=== PATIENT | male | born 1960 | race Caucasian/White ===

== ENCOUNTER 2017-01-07 03:52 | Inpatient (IN) | payer OTHER ==
[2017-01-07] VITALS (20 sets, daily range): BP systolic 157–187; BP diastolic 59–102; PULSE 48–138; TEMP 36.5–36.8; O2SAT 95–99; Ht 182.9 cm; Wt 89.1 kg
[~2017-01-07] VITALS: Ht 182.9 cm; Wt 89.1 kg
[2017-01-07] MEDS ORDERED: ACETAMINOPHEN 325 MG TAB PO PRN (04:15)
[2017-01-07] MEDS ORDERED: CITA20TA4 PO (04:24)
[2017-01-07] MEDS ORDERED: CARV25TA2 PO (04:24)
[2017-01-07] MEDS ORDERED: PRLSR20 PO (04:24)
[2017-01-07] MEDS ORDERED: ATOR-54 PO (04:24)
[2017-01-07] MEDS ORDERED: ASPCH81X PO (04:27)
[2017-01-07] MEDS ORDERED: FRRS300 PO (04:27)
[2017-01-07] MEDS ORDERED: TERA5CAP PO (04:27)
[2017-01-07] MEDS ORDERED: HYT/2 PO (04:27)
[2017-01-07] MEDS ORDERED: FEBU40TA PO (04:27)
[2017-01-07] MEDS ORDERED: AMLO-114 PO (04:27)
[2017-01-07] MEDS ORDERED: SODIUM CHLORIDE 0.9% IV SCH (04:45)
[2017-01-07] MEDS ORDERED: CALCIUM GLUCONATE IV SCH (04:45)
[2017-01-07 04:52] LABS: BASO % 1.1 %; BASO ABS # 0.05 K/uL (0-0.2); COMPLETE YES; EOS % 3.8 %; HEMATOCRIT 29.1 % (42-52); IG% 0.2 %; LYMPH % 33.2 %; MEAN CELL VOLUME 88.7 fL (80-100); MEAN CORPUSCULAR HEMOGLOBIN 29.6 pg (25-34); MEAN CORPUSCULAR HGB CONC 33.3 g/dl (32-36); MEAN PLATELET VOLUME 9.6 fL (7.4-10.4); MONO % 6.6 %; NEUT % 55.1 %; PLATELET COUNT 114 K/uL (130-400); RED BLOOD COUNT 3.28 M/uL (4.7-6.1); WHITE BLOOD COUNT 4.52 K/uL (4.8-10.8)
--- NOTE | 2017-01-07 05:11 | History and Physical ---
History & Physical Date & Time of Service: Jan 07, 2017 at 04:54 Chief Complaint: Abnormal Labs Primary Care Physician: Zak Tijerina M.D. History of Present Illness Source: patient, clinic records 56 year old male with history of CKD 4, Atrial Fibrillation on Aspirin, CVA, Hypertension, HLD, presenting with low calcium level. Patient follows with Dr. Tijerina for PCP and Dr. Haskins for CKD. History obtained from patient and from Dr. Dalila Brown who signed out the patient to nd. Patient has CKD 4 and underwent AV fistula placement around 6 months ago. For the past few months, patient has been managed by Dr. Haskins for hypocalcemia, attributed to his CKD. He had multiple ER visits to the [facility] ER recently for this. The last visit was on 01/04/17 wherein patient was apparently given IV Ca and discharged home. Today, outpatient lab work showed that the patient's potassium was 5.6, hence was directed to the ER. Patient went to [place] ER, and after discussion with Dr. Brown, he was advised to be transferred to [facility] for further management including possible initiation of hemodialysis. On exam, patient was seen resting in bed, comfortable, pleasant. Denies paresthesias, weakness, tremors. Also denies any headache, chest pain, dyspnea, abdominal pain ,nausea, changes with BM/Urination. No other symptoms. Family History DM - aunt Social History Smoking Status: Former Smoker Smokeless Tobacco Use: No Alcohol Use: none Drug Use: none Marital Status: single Housing status: lives alone Allergies Coded Allergies: No Known Allergies (Unverified , 01/07/17) Home Medications Scheduled Amlodipine (Norvasc), 10 MG PO DAILY Aspirin (Aspirin Chewable), 81 MG PO DAILY Atorvastatin (Lipitor), 20 MG PO DAILY Carvedilol (Coreg), 25 MG PO BID Citalopram Hydrobromide (Citalopram Hydrobromide), 20 MG PO DAILY Febuxostat (Uloric), 40 MG PO DAILY Ferrous Sulfate (Ferrous Sulfate), 325 MG PO DAILY Omeprazole (Prilosec), 20 MG PO DAILY Terazosin (Hytrin), 5 MG PO BID Terazosin Hcl (Hytrin), 2 MG PO BID Review of Systems Constitutional- no fever; no weight loss Eyes- no acute visual changes ENT- no sinus drainage; no pharyngitis Pulmonary- no cough, no wheezing, no shortness of breath Cardiac- no chest pain, no palpitations, no orthopnea, no dependent edema GI- no nausea, no vomiting, no diarrhea, no melena, no hematochezia - no dysuria, no hematuria Musculoskeletal- no arthralgias, no myalgias Derm- no rashes, no new skin lesions, no changing skin lesions Hematologic- no unusual bruising, no unusual bleeding Lymphatics- no adenopathy Endocrine- no polyuria or polydipsia; no heat or cold intolerance Neuro- no headaches, no focal neurologic symptoms Psych- no anxiety, no depression Physical Exam Vital Signs Date Time Temp Pulse Resp B/P (MAP) Pulse Ox O2 Delivery O2 Flow Rate FiO2 01/07/17 04:06 58 01/07/17 04:00 36.7 56 18 175/87 99 Room Air General Appearance: WD/WN, no apparent distress Head: normocephalic, atraumatic Eyes: normal inspection, EOMI, sclerae normal ENT: normal ENT inspection, hearing grossly normal, pharynx normal Neck: supple, no adenopathy, thyroid normal, no JVD, trachea midline Respiratory/Chest: chest non-tender, lungs clear, normal breath sounds, no respiratory distress, no accessory muscle use Cardiovascular: regular rate, rhythm, no edema, no JVD, no murmur Abdomen/GI: normal bowel sounds, non tender, soft, no organomegaly Back: normal inspection, no CVA tenderness Extremities/Musculoskelatal: normal inspection, no calf tenderness, normal capillary refill, no pedal edema, normal range of motion, + pertinent finding (( +) AV fistula on left arm with good thrill) 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 as tested, no motor/sensory deficits, alert, normal mood/affect, oriented x 3 Skin: normal color, warm/dry, no rash Lymphatic: no adenopathy Diagnostics Laboratory Results Results Past 24 Hours Test 01/07/17 04:38 Range/Units White Blood Count 4.52 4.8-10.8 K/uL Red Blood Count 3.28 4.7-6.1 M/uL Hemoglobin 9.7 14.0-18.0 g/dL Hematocrit 29.1 42-52 % Mean Corpuscular Volume 88.7 80-100 fL Mean Corpuscular Hemoglobin 29.6 25-34 pg Mean Corpuscular Hemoglobin Concent 33.3 32-36 g/dl Platelet Count 114 130-400 K/uL Mean Platelet Volume 9.6 7.4-10.4 fL Neutrophils (%) (Auto) 55.1 % Lymphocytes (%) (Auto) 33.2 % Monocytes (%) (Auto) 6.6 % Eosinophils (%) (Auto) 3.8 % Basophils (%) (Auto) 1.1 % Neutrophils # (Auto) 2.49 1.4-6.5 K/uL Lymphocytes # (Auto) 1.50 1.2-3.4 K/uL Monocytes # (Auto) 0.30 0.11-0.59 K/uL Eosinophils # (Auto) 0.17 0-0.5 K/uL Basophils # (Auto) 0.05 0-0.2 K/uL RDW Standard Deviation 49.5 36.4-46.3 fL RDW Coefficient of Variation 15.2 11.5-14.5 % Immature Granulocyte % (Auto) 0.2 % Immature Granulocyte # (Auto) 0.01 0.00-0.02 K/uL EKG HR 50, sinus rhythm, no signs of acute ischemia/infarct Impression Assessment and Plan 56 year old male with history of CKD 4, Atrial Fibrillation on Aspirin, CVA, Hypertension, HLD, presenting with low calcium level. HYPOCALCEMIA, LIKELY FROM CKD 4 - denies paresthesias, weakness QTc 464 - PTH elevated at 393 as of November 2016 - discussed case with Dr. Brown - 2g Ca gluconate then repeat ionized Ca level - Vit D ordered - may need to initiate hemodialysis during this admission SINUS BRADYCARDIA - HR 50s - asymptomatic BP actually elevated - hold Coreg 25mg po BID HISTORY OF A FIB - EKG showing sinus bradycardia - hold Co reg continue Aspirin HISTORY OF CVA - continue Aspirin and Atorvastatin HYPERTENSION - hold Coreg for bradycardia - continue Amlodipine DVT PROPHYLAXIS SCDs FULL CODE PER PATIENT DISPOSITION anticipate d/c home when medically stable VTE Prophylaxis VTE Risk Assessment Done? Y/N: Yes Risk Level: Moderate Given or contraindicated: SCD's
[2017-01-07] MEDS ORDERED: CALCIUM GLUCONATE 10% 2,000 MG in SODIUM CHLORIDE 0.9% 50ML 50 ML IV STA ×4 (05:12→22:42)
[2017-01-07 05:24] LABS: BUN/CREATININE RATIO 12.2 (10-20); CALCIUM 5.8 mg/dl (8.5-10.1); CREATININE 4.6 mg/dl (0.60-1.40); MAGNESIUM 1.5 mg/dl (1.8-2.4); PHOSPHORUS 5.6 mg/dl (2.5-4.9); POTASSIUM 3.4 mmol/L (3.5-5.1)
[2017-01-07] MEDS: AMLODIPINE BESYLATE 5 MG TAB PO SCH (06:11)
[2017-01-07] MEDS: FERROUS SULFATE 325 MG TAB PO SCH (07:32)
[2017-01-07] MEDS: PANTOprazole SOD 40 MG TAB PO SCH (07:32)
[2017-01-07] MEDS: ASPIRIN 81 MG CHEW PO SCH (07:32)
[2017-01-07] MEDS: CITALOPRAM 20 MG TAB PO SCH (07:32)
[2017-01-07] MEDS: FEBUXOSTAT 40 MG TAB PO SCH (07:33)
[2017-01-07] MEDS ORDERED: HEPARIN SOD (PORCINE) 1000 UNIT/ML 10 ML VIAL IV SCH ×2 (08:00→12:00)
[2017-01-07] MEDS ORDERED: ATORVASTATIN 20 MG TAB PO SCH (09:00)
[2017-01-07] MEDS ORDERED: CALCIUM GLUCONATE 10% 1,000 MG in SODIUM CHLORIDE 0.9% 50ML 50 ML IV STA (09:47)
[2017-01-07] MEDS ORDERED: PARICALCITOL 5 MCG/ML VIAL (ZEMPLAR) IV. ONE (10:00)
[2017-01-07] MEDS: MAGNESIUM OXIDE 400 MG TAB PO SCH ×2 (10:11→20:27)
--- NOTE | 2017-01-07 10:22 | Nephrology Consultation ---
Nephrology Consultation Date of Consultation: Jan 07, 2017. Attending Physician: Dr Soliman Requesting Physician: Dr Jimenez Reason for Consultation: critical hypocalcemia History of Present Illness 56 year old male who follows w/ my partner Dr. Haskins in CKD clinic has been having progressively lower calcium on outpt labs over the past 2 mos. 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 DM and PEPPER were cured after 150 lb wt loss w/ gastric bypass. He denies any muscle weakness, tentany, fasciculations, perioral numbness. He has per outpt charts at times had trouble accessing medications >> for example, states PCP only this past week resumed his vitamin D which had otherwise been held earlier this summer (notes on my quick review don't support this however); also had been rx'd calcitriol this summer but could not afford pill and so did not take. Denies dyspnea, metallic taste to foods, edema, N/V, or other uremic sx. he was sent to [place] [facility] over the weekend for IV calcium and also in November for same. Despite IV calcium in [place] ER on 01/04 and despite taking massive amounts of oral calcium (1500 mg ca carbonate between each meal and before bed, so qid), his ionized calcium yesterday as outpt was 0.9 w/ uncorrected Ca 5.6, both trending downward. Past Medical/Surgical History see HPI Family History no FH of CKD/ESRD Social History Smoking Status: Former Smoker Alcohol Use: none Drug Use: none Marital Status: single Housing Status: lives with significant other Occupation Status: disabled Allergies Coded Allergies: No Known Allergies (Unverified , 01/07/17) Medications Current Inpatient Medications Medications (Trade) Dose Ordered Sig/Graciela Route Start Time Stop Time Status Last Admin Dose Admin Acetaminophen (Tylenol Tab) 650 mg Q4H PRN PO 01/07/17 04:15 02/06/17 04:14 Amlodipine Besylate (Norvasc Tab) 10 mg DAILY PO 01/07/17 09:00 02/06/17 08:59 01/07/17 06:11 10 MG Aspirin (Aspirin Chew) 81 mg DAILY PO 01/07/17 09:00 02/06/17 08:59 01/07/17 07:32 81 MG Atorvastatin Calcium (Lipitor Tab) 20 mg DAILY PO 01/07/17 09:00 02/06/17 08:59 01/07/17 07:32 20 MG Citalopram Hydrobromide (celeXA TAB) 20 mg DAILY PO 01/07/17 09:00 02/06/17 08:59 01/07/17 07:32 20 MG Ferrous Sulfate (Feosol Tab) 325 mg DAILY PO 01/07/17 09:00 02/06/17 08:59 01/07/17 07:32 325 MG Terazosin HCl (Hytrin Cap) 5 mg BID PO 01/07/17 09:00 02/06/17 08:59 01/07/17 07:32 5 MG Terazosin HCl (Hytrin Cap) 2 mg BID PO 01/07/17 09:00 02/06/17 08:59 01/07/17 07:32 2 MG Febuxostat (Uloric) 40 mg DAILY PO 01/07/17 09:00 02/06/17 08:59 01/07/17 07:33 40 MG Pantoprazole Sodium (Protonix Tab) 40 mg QAM PO 01/07/17 09:00 02/06/17 08:59 01/07/17 07:32 40 MG Magnesium Oxide (Mag-Ox Tab) 400 mg BID PO 01/07/17 09:00 02/06/17 08:59 Home Meds and Scripts Medications Dose Route/Sig Max Daily Dose Days Date Category Ferrous Sulfate 325 Mg Tab 325 Mg PO DAILY 01/07/17 Reported Uloric (Febuxostat) 40 Mg Tab 40 Mg PO DAILY 01/07/17 Reported Aspirin Chewable (Aspirin) 81 Mg Chew 81 Mg PO DAILY 01/07/17 Reported Norvasc (Amlodipine Besylate) 10 Mg Tab 10 Mg PO DAILY 01/07/17 Reported Hytrin (Terazosin HCl) 2 Mg Cap 2 Mg PO BID 01/07/17 Reported Hytrin (Terazosin HCl) 5 Mg Cap 5 Mg PO BID 01/07/17 Reported Prilosec (Omeprazole) 20 Mg Capcr 20 Mg PO DAILY 01/07/17 Reported Coreg (Carvedilol) 25 Mg Tab 25 Mg PO BID 01/07/17 Reported Citalopram Hydrobromide 20 Mg Tab 20 Mg PO DAILY 01/07/17 Reported Lipitor (Atorvastatin) 20 Mg Tab 20 Mg PO DAILY 01/07/17 Reported Review of Systems Constitutional: No fever, No weakness, No fatigue Eyes: No worsening of vision ENT: No hearing loss Respiratory: No cough, No shortness of breath Cardiac: No chest pain, No edema, No palpitations Abdomen: No pain, No nausea, No vomiting, No diarrhea, No constipation Musculoskeletal: No joint pain, No muscle pain Male : + problem reported (denies change in urinary habits), No dysuria, No urinary frequency Neuro: No memory loss, No weakness, No numbness/tingling Psych: No depression symptoms, No anxiety Heme: No abnormal bleeding/bruising Skin: No rash, No new/changing skin lesions Physical Exam Date Time Temp Pulse Resp B/P (MAP) Pulse Ox O2 Delivery O2 Flow Rate FiO2 01/07/17 07:48 36.7 57 17 162/76 (104) 96 Room Air 01/07/17 05:49 36.6 52 16 184/75 95 Room Air 01/07/17 04:52 54 17 97 01/07/17 04:37 51 18 96 01/07/17 04:31 160/72 01/07/17 04:22 56 15 98 01/07/17 04:17 170/75 01/07/17 04:07 58 97 Room Air 01/07/17 04:06 58 01/07/17 04:00 36.7 56 18 175/87 99 Room Air 01/07/17 03:58 175/87 General Appearance: WD/WN, no apparent distress, + pertinent finding (on ra, maneuvers w/ ease for exam) Eyes: EOMI ENT: hearing grossly normal Neck: supple Respiratory/Chest: lungs clear, no respiratory distress, + decreased breath sounds Cardiovascular: no edema, + bradycardia (regularly spaced beats in 50s w/ pacs) Abdomen: normal bowel sounds, non tender, soft, + pertinent finding (no sanchez) Extremities: no pedal edema, + pertinent finding (L AVF + t/b) Neurologic/Psych: alert, normal mood/affect, oriented x 3, + pertinent finding (some dysarthria and R sided weakness, ?reliability as historian at times) Skin: no jaundice, warm/dry, no rash Diagnostics Last 24 Hours Test 01/07/17 04:38 01/07/17 06:55 01/07/17 07:45 01/07/17 07:46 White Blood Count 4.52 K/uL Red Blood Count 3.28 M/uL Hemoglobin 9.7 g/dL Hematocrit 29.1 % Mean Corpuscular Volume 88.7 fL Mean Corpuscular Hemoglobin 29.6 pg Mean Corpuscular Hemoglobin Concent 33.3 g/dl Platelet Count 114 K/uL Mean Platelet Volume 9.6 fL Neutrophils (%) (Auto) 55.1 % Lymphocytes (%) (Auto) 33.2 % Monocytes (%) (Auto) 6.6 % Eosinophils (%) (Auto) 3.8 % Basophils (%) (Auto) 1.1 % Neutrophils # (Auto) 2.49 K/uL Lymphocytes # (Auto) 1.50 K/uL Monocytes # (Auto) 0.30 K/uL Eosinophils # (Auto) 0.17 K/uL Basophils # (Auto) 0.05 K/uL RDW Standard Deviation 49.5 fL RDW Coefficient of Variation 15.2 % Immature Granulocyte % (Auto) 0.2 % Immature Granulocyte # (Auto) 0.01 K/uL Sodium Level 145 mmol/L Potassium Level 3.4 mmol/L Chloride Level 117 mmol/L Carbon Dioxide Level 19 mmol/L Anion Gap 9.0 mmol/L Blood Urea Nitrogen 56 mg/dl Creatinine 4.60 mg/dl Est Creatinine Clear Calc Drug Dose 22.1 ml/min Estimated GFR () 15.6 Estimated GFR (Non- 13.4 BUN/Creatinine Ratio 12.2 Random Glucose 81 mg/dl Calcium Level 5.8 mg/dl 6.5 mg/dl Ionized Calcium 0.79 mmol/l 0.86 mmol/l Phosphorus Level 5.6 mg/dl Magnesium Level 1.5 mg/dl 25-Hydroxy Vitamin D Total 20.8 ng/ml EKG: ecg > sinus roger Assessment & Plan 56 y/o M w/ hx of stroke, 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 Outpt calcium levels have consistently trended downward despite ER visits for repletion. 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 until iCa consistently > 1.0 -giving paricalcitol w/ HD 4 mcg IV today -orders in to dialyze today on monitor on high Ca bath (3Ca) -pls check ionized Ca q 6h urgent, check mag AM and PM w/ these labs -replete mag po for now > pls start slow mag 64 mg bid -give calcium gluconate 2 gm IV now and repeat for every iCa between 0.8- 1.0 give 2 gm calcium gluconate IV, and if iCa > 1.0 and up to 1.12, give 1 gm IV calcium gluconate, if >1.12 hold ca gluconate; if less than 0.8 give 2 gm calcium gluconate IV and call nephro << I discussed this order w/ pharmacy and they are putting in -pls start D2 61157 units po q48 hrs for now (high dose) -pls give calcium carbonate po 1250 mg tid <<>> pls d/w pharmacy timing of this for maximal absorption -pls start phosLo 667 mg ac po -pls check tsh w/ next labs hypomagnesemia -check as above -replete po where possible ESRD not on dialysis -will do dialysis today to help w/ Ca levels; plan tx likely tomorrow as well -unclear at this time if he will leave hospital on dialysis or not > depends on clinical course -has mature avf HTN -may improve slightly w/ HD; cont amlodipine; avoid BB d/t bradycardia -pls check later in day > if still elevated, start ACEI (ok to use in house w/ his ckd/esrd) -consider baseline CXR, evelia if any hypoxia Anemia of ESRD and mild thrombocytopenia -pls check transferrin sat and ferritin w/ labs in am -will give epo 10K units w/ HD today -thrombocytopenia is new and will need to be monitored; may reflect uremia Appreciate c/s; will follow with you. Care coordinated w/ Dr Soliman
[2017-01-07] MEDS ORDERED: HEPARIN SOD (PORCINE) 1000 UNIT/ML 10 ML VIAL IV ONE (10:30)
[2017-01-07] MEDS ORDERED: EPOETIN ALFA 10,000 UNITS/ML VIAL IV. ONE (10:30)
[2017-01-07 11:39] LABS: HEPATITIS B AB NEG
[2017-01-07] MEDS: CALCIUM CARBONATE 1250MG TAB PO SCH ×2 (14:23→20:27)
[2017-01-07] MEDS: ERGOCALCIFEROL 50,000 INTER.UNIT CAP PO SCH (14:23)
[2017-01-07] MEDS: MAGNESIUM SULFATE 1GM / D5W 1 GM in PREMIXED IN D5W 100 ML IV SCH ×2 (14:24→15:38)
[2017-01-07] MEDS ORDERED: ATOR-26 PO (15:35)
[2017-01-07] MEDS ORDERED: ERGO1CAP41 PO (15:36)
[2017-01-07] MEDS ORDERED: CALC500C3 PO (15:36)
[2017-01-07] MEDS ORDERED: RXC5 PO (15:49)
--- NOTE | 2017-01-07 16:01 | Progress Note ---
Medicine Progress Note Date & Time of Visit: Jan 07, 2017 at 15:22. Subjective 56 yo M with h/o CKD Stage 4 presents with severe asymptomatic hypocalcemia. tolerating PO Asking for food-hungry otherwise denies perioral numbness, muscle spasms or any other symptoms at this time has some chronic lower back pain and consistently takes oxycodone as outpatient 5mg [id number] this now. BP elevated but Coreg, Oxycodone held on admission Increased Lipitor 20 back to home dose of 80mg First HD session went well today Trending calcium q6h-IV calcium as needed Objective Last 8 Hrs Date Time Temp Pulse Resp B/P (MAP) Pulse Ox O2 Delivery O2 Flow Rate FiO2 01/07/17 14:00 36.5 83 178/88 (118) 01/07/17 13:28 138 185/102 01/07/17 13:15 52 173/78 01/07/17 13:00 50 182/83 01/07/17 12:46 48 157/76 01/07/17 12:30 50 187/72 01/07/17 12:19 96 Room Air 01/07/17 12:15 51 170/82 01/07/17 12:14 36.8 53 22 162/93 (116) 98 Room Air 01/07/17 12:00 50 166/79 01/07/17 11:45 54 169/76 01/07/17 11:30 53 162/93 01/07/17 11:24 56 170/84 01/07/17 08:01 96 Room Air 01/07/17 07:48 36.7 57 17 162/76 (104) 96 Room Air Physical Exam: GEN: WNWD, in no acute distress, alert and appropriate, some speech difficulties but is lucid HEENT: NC/AT, MMM CARDIO: reg rate, S1/2 heard without m/g/r LUNGS: CTA bilaterally, no crackles, rales or wheezes, good diaphragmatic excursion ABD: soft, non-tender, non-distended, no rebound or guarding, +BS EXTREMITY: RP and DP palpable 2+ bilat, no LE swelling or edema, extremities are warm and well-perfused. birthmark on R forearm. NEURO: CN 2-12 grossly intact MUSC: 5/5 strength throughout, no gross focal deficits, ambulatory without issues. SKIN: warm and dry Laboratory Results: 01/07/17 04:38 Red Blood Count 3.28, Mean Corpuscular Volume 88.7, Mean Corpuscular Hemoglobin 29.6, Mean Corpuscular Hemoglobin Concent 33.3, Mean Platelet Volume 9.6, Neutrophils (%) (Auto) 55.1, Lymphocytes (%) (Auto) 33.2, Monocytes (%) (Auto) 6.6, Eosinophils (%) (Auto) 3.8, Basophils (%) (Auto) 1.1, Neutrophils # (Auto) 2.49, Lymphocytes # (Auto) 1.50, Monocytes # (Auto) 0.30, Eosinophils # (Auto) 0.17, Basophils # (Auto) 0.05 01/07/17 04:38 Test 01/07/17 04:38 01/07/17 06:55 01/07/17 08:34 01/07/17 10:27 White Blood Count 4.52 K/uL (4.8-10.8) Red Blood Count 3.28 M/uL (4.7-6.1) Hemoglobin 9.7 g/dL (14.0-18.0) Hematocrit 29.1 % (42-52) Mean Corpuscular Volume 88.7 fL (80-100) Mean Corpuscular Hemoglobin 29.6 pg (25-34) Mean Corpuscular Hemoglobin Concent 33.3 g/dl (32-36) Platelet Count 114 K/uL (130-400) Mean Platelet Volume 9.6 fL (7.4-10.4) Neutrophils (%) (Auto) 55.1 % Lymphocytes (%) (Auto) 33.2 % Monocytes (%) (Auto) 6.6 % Eosinophils (%) (Auto) 3.8 % Basophils (%) (Auto) 1.1 % Neutrophils # (Auto) 2.49 K/uL (1.4-6.5) Lymphocytes # (Auto) 1.50 K/uL (1.2-3.4) Monocytes # (Auto) 0.30 K/uL (0.11-0.59) Eosinophils # (Auto) 0.17 K/uL (0-0.5) Basophils # (Auto) 0.05 K/uL (0-0.2) RDW Standard Deviation 49.5 fL (36.4-46.3) RDW Coefficient of Variation 15.2 % (11.5-14.5) Immature Granulocyte % (Auto) 0.2 % Immature Granulocyte # (Auto) 0.01 K/uL (0.00-0.02) Anion Gap 9.0 mmol/L (3-11) Est Creatinine Clear Calc Drug Dose 22.1 ml/min Estimated GFR () 15.6 Estimated GFR (Non- 13.4 BUN/Creatinine Ratio 12.2 (10-20) Phosphorus Level 5.6 mg/dl (2.5-4.9) Magnesium Level 1.5 mg/dl (1.8-2.4) 25-Hydroxy Vitamin D Total 20.8 ng/ml (30-100) Calcium Level 6.5 mg/dl (8.5-10.1) Parathyroid Hormone (Intact) 492.1 pg/mL (11.1-79.5) Ionized Calcium 0.84 mmol/l (1.12-1.32) Test 01/07/17 10:50 01/07/17 13:38 Hepatitis B Surface Antigen NEG (NEG) Hepatitis B Surface Antibody NEG Last 24 Hours Test 01/07/17 04:38 01/07/17 06:55 01/07/17 07:46 01/07/17 08:34 White Blood Count 4.52 K/uL Red Blood Count 3.28 M/uL Hemoglobin 9.7 g/dL Hematocrit 29.1 % Mean Corpuscular Volume 88.7 fL Mean Corpuscular Hemoglobin 29.6 pg Mean Corpuscular Hemoglobin Concent 33.3 g/dl Platelet Count 114 K/uL Mean Platelet Volume 9.6 fL Neutrophils (%) (Auto) 55.1 % Lymphocytes (%) (Auto) 33.2 % Monocytes (%) (Auto) 6.6 % Eosinophils (%) (Auto) 3.8 % Basophils (%) (Auto) 1.1 % Neutrophils # (Auto) 2.49 K/uL Lymphocytes # (Auto) 1.50 K/uL Monocytes # (Auto) 0.30 K/uL Eosinophils # (Auto) 0.17 K/uL Basophils # (Auto) 0.05 K/uL RDW Standard Deviation 49.5 fL RDW Coefficient of Variation 15.2 % Immature Granulocyte % (Auto) 0.2 % Immature Granulocyte # (Auto) 0.01 K/uL Sodium Level 145 mmol/L Potassium Level 3.4 mmol/L Chloride Level 117 mmol/L Carbon Dioxide Level 19 mmol/L Anion Gap 9.0 mmol/L Blood Urea Nitrogen 56 mg/dl Creatinine 4.60 mg/dl Est Creatinine Clear Calc Drug Dose 22.1 ml/min Estimated GFR () 15.6 Estimated GFR (Non- 13.4 BUN/Creatinine Ratio 12.2 Random Glucose 81 mg/dl Calcium Level 5.8 mg/dl 6.5 mg/dl Ionized Calcium 0.79 mmol/l 0.86 mmol/l Phosphorus Level 5.6 mg/dl Magnesium Level 1.5 mg/dl 25-Hydroxy Vitamin D Total 20.8 ng/ml Parathyroid Hormone (Intact) 492.1 pg/mL Test 01/07/17 10:27 01/07/17 10:50 01/07/17 13:38 Ionized Calcium 0.84 mmol/l Hepatitis B Surface Antigen NEG Hepatitis B Surface Antibody NEG Assessment & Plan 56 yo M with h/o CKD Stage 4 presents with severe asymptomatic hypocalcemia. 1. Hypocalcemia-likely multifactorial in setting of ESRD, hypomagnesemia, and low vitamin D. Pt remains asymptomatic. First treatment of HD started today. Serial ionized calcium ordered with replacement per Nephro protocol as spelled out in progress note. Cont per Nephro recs. PO calcium restarted. 2. Hypomagnesemia-replace IV and add PO replacement. 3. CKD IV-starting initial HD treatment today. Cont per Nephro 4. Atrial fibrillation-was initially sinus roger, but went into atrial fibrillation while on first HD treatment today and remains there with rate < 100. Cont to monitor and control rate PRN. Anticoagulation contraindicated in the setting of GI bleed in the past. 5. h/o CVA in 2001 embolic stroke as a complication of carotid surgery- residual speech issues. Cont ASA 81 and Lipitor 80mg dose (this is home dose, not 20mg. Per records and confirmed with the patient) 6. HTN-uncontrolled. On Norvasc 10mg, Coreg 25 BID and Hytrin 7mg PO BID, confirmed with patient. Coreg was held initially because of the bradycardia. Will add back at half dose with HR in the 60s. Will give some hydralazine PRN for now until he becomes more stable with new HD treatments and various lyte shifts with fluids given. Also, pain is uncontrolled as he is on oxycodone 5mg IR q8hrs and this was not continued on admission. Will restart this now and monitor. 7. Chronic back pain. On oxycodone q8hrs. Restarted now, likely contributing to higher blood pressures. 8. Vitamin D def-replacing 50K q2d per Nephro recs. Was on 50K qweek. 9. Anemia of CKD-no indication for blood transfusion. Cont to monitor 10. Thrombocytopenia DVT prophy: Heparin, SCDs FULL CODE DISPOSITION: anticipate d/c home when medically stable DO [facility] Hospital[facility] Consultants: Nephro. Current Inpatient Medications: Current Inpatient Medications Medications (Trade) Dose Ordered Sig/Graciela Route Start Time Stop Time Status Last Admin Dose Admin Acetaminophen (Tylenol Tab) 650 mg Q4H PRN PO 01/07/17 04:15 02/06/17 04:14 Amlodipine Besylate (Norvasc Tab) 10 mg DAILY PO 01/07/17 09:00 02/06/17 08:59 01/07/17 06:11 10 MG Aspirin (Aspirin Chew) 81 mg DAILY PO 01/07/17 09:00 02/06/17 08:59 01/07/17 07:32 81 MG Atorvastatin Calcium (Lipitor Tab) 20 mg DAILY PO 01/07/17 09:00 02/06/17 08:59 01/07/17 07:32 20 MG Citalopram Hydrobromide (celeXA TAB) 20 mg DAILY PO 01/07/17 09:00 02/06/17 08:59 01/07/17 07:32 20 MG Ferrous Sulfate (Feosol Tab) 325 mg DAILY PO 01/07/17 09:00 02/06/17 08:59 01/07/17 07:32 325 MG Terazosin HCl (Hytrin Cap) 5 mg BID PO 01/07/17 09:00 02/06/17 08:59 01/07/17 07:32 5 MG Terazosin HCl (Hytrin Cap) 2 mg BID PO 01/07/17 09:00 02/06/17 08:59 01/07/17 07:32 2 MG Febuxostat (Uloric) 40 mg DAILY PO 01/07/17 09:00 02/06/17 08:59 01/07/17 07:33 40 MG Pantoprazole Sodium (Protonix Tab) 40 mg QAM PO 01/07/17 09:00 02/06/17 08:59 01/07/17 07:32 40 MG Magnesium Oxide (Mag-Ox Tab) 400 mg BID PO 01/07/17 09:00 02/06/17 08:59 01/07/17 10:11 400 MG Miscellaneous Information (Pending Order) 1 ea Q6H N/A 01/07/17 14:00 02/06/17 13:59 Magnesium Sulfate 1 gm/Prmx 100 ml @ 100 mls/hr Q1H IV 01/07/17 14:00 01/07/17 15:59 01/07/17 14:24 100 MLS/HR Ergocalciferol (Vitamin D Cap) 50,000 interunit Q2D@0900 PO 01/07/17 14:00 01/25/17 12:00 01/07/17 14:23 50,000 INTERUNIT Calcium Carbonate (oS-Yahir 500 TAB) 1,250 mg TID PO 01/07/17 14:00 02/06/17 13:59 01/07/17 14:23 1,250 MG Calcium Acetate (Phoslo Cap) 667 mg TIDM PO 01/07/17 16:45 02/06/17 16:44
[2017-01-07 16:50] LABS: INR 1.1 (0.9-1.1); PROTHROMBIN TIME (PATIENT) 11.3 SECONDS (9.0-12.0)
[2017-01-07] MEDS: CALCIUM ACETATE 667MG GELCAP PO SCH (17:06)
[2017-01-07] MEDS: OXYCODONE HCL IR 5 MG TAB (IMMEDIATE RELEASE) PO SCH ×2 (17:14→23:00)
[2017-01-07] MEDS: CARVEDILOL 12.5 MG TAB PO SCH (20:25)
[2017-01-07] MEDS: HEPARIN SOD 5000 UNIT/0.5 ML CARP SQ SCH (20:30)
[2017-01-07] MEDS ORDERED: OXYCODONE HCL IR 5 MG TAB (IMMEDIATE RELEASE) PO SCH (22:00)
[2017-01-07] MEDS ORDERED: NURSING VERBAL MED ORDER ONE ×2 (22:45)
[2017-01-08] VITALS (16 sets, daily range): BP systolic 125–214; BP diastolic 64–104; PULSE 52–81; TEMP 36.5–37; O2SAT 94–98
[2017-01-08 05:01] LABS: BASO % 0.9 %; BASO ABS # 0.03 K/uL (0-0.2); COMPLETE YES; EOS % 4.5 %; HEMATOCRIT 31.6 % (42-52); IG% 0.3 %; LYMPH ABS # 0.89 K/uL (1.2-3.4); MEAN CELL VOLUME 87.3 fL (80-100); MEAN CORPUSCULAR HGB CONC 33.2 g/dl (32-36); MEAN PLATELET VOLUME 9.9 fL (7.4-10.4); NEUT % 60.3 %; PLATELET COUNT 118 K/uL (130-400); RED BLOOD COUNT 3.62 M/uL (4.7-6.1)
[2017-01-08] MEDS ORDERED: CALCIUM GLUCONATE 10% 1,000 MG in SODIUM CHLORIDE 0.9% 50ML 50 ML IV STA ×2 (05:25→23:05)
[2017-01-08 05:28] LABS: CALCIUM 7.7 mg/dl (8.5-10.1); CREATININE 3.5 mg/dl (0.60-1.40); MAGNESIUM 2.1 mg/dl (1.8-2.4); PHOSPHORUS 4.7 mg/dl (2.5-4.9); POTASSIUM 3.3 mmol/L (3.5-5.1)
[2017-01-08] MEDS ORDERED: NURSING VERBAL MED ORDER ONE ×3 (05:30→23:15)
[2017-01-08] MEDS: HEPARIN SOD 5000 UNIT/0.5 ML CARP SQ SCH ×3 (05:51→20:20)
[2017-01-08] MEDS: OXYCODONE HCL IR 5 MG TAB (IMMEDIATE RELEASE) PO SCH ×4 (05:53→22:11)
--- NOTE | 2017-01-08 07:55 | Clinical Documentation Query ---
NII Potter : CLINICAL DOCUMENTATION QUERY Patient is a 56 year old male admitted for evaluation and treatment of critical hypocalcemia. Documentation by admitting, nephrology, and attending includes: CKD 4 CKD 4-starting initial HD treatment today CKD 4/5 ESRD 5 not on dialysis Now recieving dialysis. Unclear if will require HD at time of discharge. Please clarify as clinically appropriate as these diagnoses are not similar in terms of severity of illness, risk of mortality, and effect on DRG assignment. Thank you. In your clinical opinion is this patient being managed for: ( x ) End stage renal disease requiring dialysis ( ) ANN on CKD 4 requiring hemodialysis ( ) NAN on CKD stage 4-5 requiring hemodialysis ( ) Not Agree ( ) Other explanation of clinical findings (Please Explain) ( ) Unable to determine (Please Define) ( ) Need to Discuss The medical record reflects the following clinical findings, treatment, and risk factors. Clinical Indicators: As above Treatment: Hemodialysis, nephrology consultation, telemetry Risk Factors: Congenitally absent left kidney, hypertension, atrial fibrillation Please clarify and document your clinical opinion in the progress notes and discharge summary. Terms such as "probable", "suspected", "likely", "questionable", "possible", or "still to be ruled out" are acceptable. IF IN AGREEMENT, YOU MUST DOCUMENT ABOVE DIAGNOSTIC STATEMENT IN DAILY PROGRESS NOTES AND DISCHARGE SUMMARY. This document is not part of the patient's record. Thank You, Freddy Gamez, MARISELA [phone]
--- NOTE | 2017-01-08 07:56 | Clinical Documentation Query ---
Dr. BEAULIEU [facility] : CLINICAL DOCUMENTATION QUERY Patient is a 56 year old male admitted for evaluation and treatment of critical hypocalcemia. Documentation by admitting, nephrology, and attending includes: CKD 4 CKD 4-starting initial HD treatment today CKD 4/5 ESRD 5 not on dialysis( now receiving dialysis) Now recieving dialysis. Unclear if will require HD at time of discharge. Please clarify as clinically appropriate as these diagnoses are not similar in terms of severity of illness, risk of mortality, and effect on DRG assignment. Thank you. In your clinical opinion is this patient being managed for: ( x ) End stage renal disease ( ) ANN on CKD 4 requiring hemodialysis ( ) ANN on CKD stage 4-5 requiring hemodialysis ( ) Not Agree ( ) Other explanation of clinical findings (Please Explain) ( ) Unable to determine (Please Define) ( ) Need to Discuss He has ckd stage 5 with hypocalcemia and initiated dialysis secondary to ESRD and hypocalcemia from ESRD. The medical record reflects the following clinical findings, treatment, and risk factors. Clinical Indicators: As above Treatment: Hemodialysis, nephrology consultation, telemetry Risk Factors: Congenitally absent left kidney, hypertension, atrial fibrillation Please clarify and document your clinical opinion in the progress notes and discharge summary. Terms such as "probable", "suspected", "likely", "questionable", "possible", or "still to be ruled out" are acceptable. IF IN AGREEMENT, YOU MUST DOCUMENT ABOVE DIAGNOSTIC STATEMENT IN DAILY PROGRESS NOTES AND DISCHARGE SUMMARY. This document is not part of the patient's record. Thank You, Freddy Gamez, RN [phone]
[2017-01-08] MEDS ORDERED: PARICALCITOL 5 MCG/ML VIAL (ZEMPLAR) IV. SCH (08:00)
[2017-01-08] MEDS ORDERED: EPOETIN ALFA 10,000 UNITS/ML VIAL IV. SCH (08:00)
[2017-01-08] MEDS: CALCIUM ACETATE 667MG GELCAP PO SCH ×3 (08:27→17:36)
[2017-01-08] MEDS: FEBUXOSTAT 40 MG TAB PO SCH (08:30)
[2017-01-08] MEDS: CARVEDILOL 12.5 MG TAB PO SCH ×2 (09:00→20:16)
[2017-01-08] MEDS: HEPARIN SOD (PORCINE) 1000 UNIT/ML 10 ML VIAL IV SCH ×3 (09:00→13:54)
[2017-01-08] MEDS: ASPIRIN 81 MG CHEW PO SCH (09:20)
[2017-01-08] MEDS: CITALOPRAM 20 MG TAB PO SCH (09:20)
[2017-01-08] MEDS: PANTOprazole SOD 40 MG TAB PO SCH (09:21)
[2017-01-08] MEDS: FERROUS SULFATE 325 MG TAB PO SCH (09:21)
[2017-01-08] MEDS: CALCIUM CARBONATE 1250MG TAB PO SCH ×3 (09:22→20:16)
[2017-01-08] MEDS: MAGNESIUM OXIDE 400 MG TAB PO SCH ×2 (09:22→20:16)
[2017-01-08] MEDS ORDERED: POTASSIUM CHLORIDE 20 MEQ TABCR PO ONE (11:00)
[2017-01-08] MEDS: HydrALAZINE HCL 20 MG/ML VIAL IV. PRN (11:36)
[2017-01-08] MEDS ORDERED: CALCIUM GLUCONATE 10% 1,000 MG in SODIUM CHLORIDE 0.9% 50ML 50 ML IV SCH (13:00)
[2017-01-08 13:07] LABS: HEP C SIGNAL TO CUTOFF RATIO 0.01 (LESS THAN 1.0)
[2017-01-08] MEDS: AMLODIPINE BESYLATE 5 MG TAB PO SCH (13:57)
[2017-01-08] MEDS: ATORVASTATIN 40 MG TAB PO SCH (13:58)
--- NOTE | 2017-01-08 15:28 | Nephrology Progress Note ---
Nephrology Progress Note Date of Service: Jan 08, 2017. Subjective 56 yo male with ckd stage 5 with significant hypocalcemia with a mature fistula. had dialysis yesterday and today. pt feels good. did have episode of palpitations on dialysis yesterday. today, it went well. Objective Date Time Temp Pulse Resp B/P (MAP) Pulse Ox O2 Delivery O2 Flow Rate FiO2 01/08/17 14:06 36.5 81 191/68 (109) 01/08/17 13:00 67 205/98 01/08/17 12:32 36.5 53 20 166/76 (106) 98 Room Air 01/08/17 12:30 66 214/104 01/08/17 12:00 61 187/65 01/08/17 12:00 Room Air 01/08/17 11:30 58 166/76 01/08/17 11:10 53 185/82 01/08/17 10:50 63 178/74 01/08/17 10:30 36.7 61 156/82 (106) 01/08/17 08:18 36.7 57 20 188/77 (114) 95 Room Air 01/08/17 08:00 Room Air 01/08/17 04:00 Room Air 01/08/17 03:15 37.0 62 18 125/77 (93) 96 Room Air 01/07/17 23:59 Room Air 01/07/17 23:18 36.7 62 18 172/77 (108) 96 Room Air 01/07/17 20:06 36.7 49 16 158/59 (92) 97 Room Air 01/07/17 20:00 Room Air 01/07/17 16:00 Room Air 01/07/17 15:33 36.6 79 20 174/75 (108) 99 Room Air Physical Exam: General-aaox3 Eyes-no scleral icterus ENT-mmm Neck-supple Lungs-cta Heart-rrr Abdomen-bs+ s/nt/nd Extremities-no c/c/e Neuro-nonfocal Current Inpatient Medications Medications (Trade) Dose Ordered Sig/Graciela Route Start Time Stop Time Status Last Admin Dose Admin Acetaminophen (Tylenol Tab) 650 mg Q4H PRN PO 01/07/17 04:15 02/06/17 04:14 Amlodipine Besylate (Norvasc Tab) 10 mg DAILY PO 01/07/17 09:00 02/06/17 08:59 01/08/17 13:57 10 MG Aspirin (Aspirin Chew) 81 mg DAILY PO 01/07/17 09:00 02/06/17 08:59 01/08/17 09:20 81 MG Citalopram Hydrobromide (celeXA TAB) 20 mg DAILY PO 01/07/17 09:00 02/06/17 08:59 01/08/17 09:20 20 MG Ferrous Sulfate (Feosol Tab) 325 mg DAILY PO 01/07/17 09:00 02/06/17 08:59 01/08/17 09:21 325 MG Terazosin HCl (Hytrin Cap) 5 mg BID PO 01/07/17 09:00 02/06/17 08:59 01/08/17 14:00 5 MG Terazosin HCl (Hytrin Cap) 2 mg BID PO 01/07/17 09:00 02/06/17 08:59 01/08/17 14:00 2 MG Febuxostat (Uloric) 40 mg DAILY PO 01/07/17 09:00 02/06/17 08:59 01/08/17 08:30 40 MG Pantoprazole Sodium (Protonix Tab) 40 mg QAM PO 01/07/17 09:00 02/06/17 08:59 01/08/17 09:21 40 MG Magnesium Oxide (Mag-Ox Tab) 400 mg BID PO 01/07/17 09:00 02/06/17 08:59 01/08/17 09:22 400 MG Miscellaneous Information (Pending Order) 1 ea Q6H N/A 01/07/17 14:00 02/06/17 13:59 01/08/17 13:54 1 EA Ergocalciferol (Vitamin D Cap) 50,000 interunit Q2D@0900 PO 01/07/17 14:00 01/25/17 12:00 01/07/17 14:23 50,000 INTERUNIT Calcium Carbonate (oS-Yahir 500 TAB) 1,250 mg TID PO 01/07/17 14:00 02/06/17 13:59 01/08/17 13:59 1,250 MG Calcium Acetate (Phoslo Cap) 667 mg TIDM PO 01/07/17 16:45 02/06/17 16:44 01/08/17 13:57 667 MG Hydralazine HCl (HydrALAZINE INJ) 10 mg Q6H PRN IV. 01/07/17 16:00 02/06/17 15:59 01/08/17 11:36 10 MG Carvedilol (Coreg Tab) 12.5 mg BID PO 01/07/17 21:00 02/06/17 20:59 Atorvastatin Calcium (Lipitor Tab) 80 mg QAM PO 01/08/17 09:00 02/07/17 08:59 01/08/17 13:58 80 MG Heparin Sodium (Porcine) (Heparin Sq 5000 Unit/0.5ml) 5,000 unit Q8 SQ 01/07/17 22:00 02/06/17 21:59 01/08/17 14:07 5,000 UNIT Oxycodone HCl (Roxicodone Immediate Rel Tab) 5 mg Q8 PO 01/07/17 17:00 01/21/17 16:59 01/08/17 14:03 5 MG Calcium Gluconate 1000 mg/Sodium Chloride 60 ml @ 240 mls/hr TODAY@1300 IV 01/08/17 13:00 01/08/17 18:00 01/08/17 13:59 240 MLS/HR Last 24 Hours Test 01/07/17 16:25 01/07/17 22:16 01/08/17 04:42 01/08/17 09:38 Prothrombin Time 11.3 SECONDS Prothromb Time International Ratio 1.1 Ionized Calcium 0.96 mmol/l 1.00 mmol/l 1.03 mmol/l 1.02 mmol/l Thyroid Stimulating Hormone (TSH) 2.250 uIu/ml Magnesium Level 2.1 mg/dl 2.1 mg/dl White Blood Count 3.30 K/uL Red Blood Count 3.62 M/uL Hemoglobin 10.5 g/dL Hematocrit 31.6 % Mean Corpuscular Volume 87.3 fL Mean Corpuscular Hemoglobin 29.0 pg Mean Corpuscular Hemoglobin Concent 33.2 g/dl Platelet Count 118 K/uL Mean Platelet Volume 9.9 fL Neutrophils (%) (Auto) 60.3 % Lymphocytes (%) (Auto) 27.0 % Monocytes (%) (Auto) 7.0 % Eosinophils (%) (Auto) 4.5 % Basophils (%) (Auto) 0.9 % Neutrophils # (Auto) 1.99 K/uL Lymphocytes # (Auto) 0.89 K/uL Monocytes # (Auto) 0.23 K/uL Eosinophils # (Auto) 0.15 K/uL Basophils # (Auto) 0.03 K/uL RDW Standard Deviation 47.6 fL RDW Coefficient of Variation 14.8 % Immature Granulocyte % (Auto) 0.3 % Immature Granulocyte # (Auto) 0.01 K/uL Sodium Level 145 mmol/L Potassium Level 3.3 mmol/L Chloride Level 114 mmol/L Carbon Dioxide Level 23 mmol/L Anion Gap 8.0 mmol/L Blood Urea Nitrogen 38 mg/dl Creatinine 3.50 mg/dl Est Creatinine Clear Calc Drug Dose 29.1 ml/min Estimated GFR () 21.7 Estimated GFR (Non- 18.7 BUN/Creatinine Ratio 11.0 Random Glucose 96 mg/dl Calcium Level 7.7 mg/dl Phosphorus Level 4.7 mg/dl Assessment & Plan ESRD-pt ckd stage 5-secondary to significant electrolyte abnormalities recommend he start chronic dialysis. pt is now ESRD-dialysis dependent. dialyzing on a 3k/3calcium bath, trying to raise calcium levels. getting iv calcium gluconate as well as oral calcium gluconate. to give oral calcitriol 1mg a day as well with elevated pth levels in setting of normal phos and low calcium.
[2017-01-08] MEDS: CALCITRIOL 0.25 MCG CAP PO SCH (17:36)
[2017-01-09] VITALS (21 sets, daily range): BP systolic 130–185; BP diastolic 53–96; PULSE 45–66; TEMP 36.6–37.1; O2SAT 94–97
--- NOTE | 2017-01-09 00:15 | Progress Note ---
Medicine Progress Note Date & Time of Visit: Jan 08, 2017 at 13:21. Subjective tolerating PO asymptomatic afebrile second HD treatment today. Ca replacement given overnight Objective Last 8 Hrs Date Time Temp Pulse Resp B/P (MAP) Pulse Ox O2 Delivery O2 Flow Rate FiO2 01/08/17 12:32 36.5 53 20 166/76 (106) 98 Room Air 01/08/17 12:00 Room Air 01/08/17 11:10 53 185/82 01/08/17 10:50 63 178/74 01/08/17 10:30 36.7 61 156/82 (106) 01/08/17 08:18 36.7 57 20 188/77 (114) 95 Room Air 01/08/17 08:00 Room Air Physical Exam: GEN: WNWD, in no acute distress, alert and appropriate, some speech difficulties but is lucid HEENT: NC/AT, MMM CARDIO: reg rate, S1/2 heard without m/g/r LUNGS: CTA bilaterally, no crackles, rales or wheezes, good diaphragmatic excursion ABD: soft, non-tender, non-distended, no rebound or guarding, +BS EXTREMITY: RP and DP palpable 2+ bilat, no LE swelling or edema, extremities are warm and well-perfused. birthmark on R forearm. NEURO: CN 2-12 grossly intact MUSC: 5/5 strength throughout, no gross focal deficits, ambulatory without issues. SKIN: warm and dry Laboratory Results: 01/08/17 04:42 Red Blood Count 3.62, Mean Corpuscular Volume 87.3, Mean Corpuscular Hemoglobin 29.0, Mean Corpuscular Hemoglobin Concent 33.2, Mean Platelet Volume 9.9, Neutrophils (%) (Auto) 60.3, Lymphocytes (%) (Auto) 27.0, Monocytes (%) (Auto) 7.0, Eosinophils (%) (Auto) 4.5, Basophils (%) (Auto) 0.9, Neutrophils # (Auto) 1.99, Lymphocytes # (Auto) 0.89, Monocytes # (Auto) 0.23, Eosinophils # (Auto) 0.15, Basophils # (Auto) 0.03 01/08/17 04:42 Test 01/07/17 04:38 01/07/17 08:34 01/07/17 10:50 01/07/17 16:25 25-Hydroxy Vitamin D Total 20.8 ng/ml (30-100) Parathyroid Hormone (Intact) 492.1 pg/mL (11.1-79.5) Hepatitis A IgM Antibody NON-REACTIVE (NON-REACTIVE) Hepatitis B Surface Antigen NEG (NEG) Hepatitis B Surface Antibody NEG Hepatitis B Core IgM Antibody NON-REACTIVE (NON-REACTIVE) Hepatitis C Antibody NON-REACTIVE (NON-REACTIVE) Hepatitis C Ab Signal/Cutoff Ratio 0.01 (LESS THAN 1.0) Prothrombin Time 11.3 SECONDS (9.0-12.0) Prothromb Time International Ratio 1.1 (0.9-1.1) Thyroid Stimulating Hormone (TSH) 2.250 uIu/ml (0.300-4.500) Test 01/08/17 04:42 01/08/17 22:33 White Blood Count 3.30 K/uL (4.8-10.8) Red Blood Count 3.62 M/uL (4.7-6.1) Hemoglobin 10.5 g/dL (14.0-18.0) Hematocrit 31.6 % (42-52) Mean Corpuscular Volume 87.3 fL (80-100) Mean Corpuscular Hemoglobin 29.0 pg (25-34) Mean Corpuscular Hemoglobin Concent 33.2 g/dl (32-36) Platelet Count 118 K/uL (130-400) Mean Platelet Volume 9.9 fL (7.4-10.4) Neutrophils (%) (Auto) 60.3 % Lymphocytes (%) (Auto) 27.0 % Monocytes (%) (Auto) 7.0 % Eosinophils (%) (Auto) 4.5 % Basophils (%) (Auto) 0.9 % Neutrophils # (Auto) 1.99 K/uL (1.4-6.5) Lymphocytes # (Auto) 0.89 K/uL (1.2-3.4) Monocytes # (Auto) 0.23 K/uL (0.11-0.59) Eosinophils # (Auto) 0.15 K/uL (0-0.5) Basophils # (Auto) 0.03 K/uL (0-0.2) RDW Standard Deviation 47.6 fL (36.4-46.3) RDW Coefficient of Variation 14.8 % (11.5-14.5) Immature Granulocyte % (Auto) 0.3 % Immature Granulocyte # (Auto) 0.01 K/uL (0.00-0.02) Anion Gap 8.0 mmol/L (3-11) Est Creatinine Clear Calc Drug Dose 29.1 ml/min Estimated GFR () 21.7 Estimated GFR (Non- 18.7 BUN/Creatinine Ratio 11.0 (10-20) Calcium Level 7.7 mg/dl (8.5-10.1) Phosphorus Level 4.7 mg/dl (2.5-4.9) Magnesium Level 2.1 mg/dl (1.8-2.4) Ionized Calcium 1.11 mmol/l (1.12-1.32) Last 24 Hours Test 01/07/17 16:25 01/07/17 22:16 01/08/17 04:42 01/08/17 09:38 Prothrombin Time 11.3 SECONDS Prothromb Time International Ratio 1.1 Ionized Calcium 0.96 mmol/l 1.00 mmol/l 1.03 mmol/l 1.02 mmol/l Thyroid Stimulating Hormone (TSH) 2.250 uIu/ml Magnesium Level 2.1 mg/dl 2.1 mg/dl White Blood Count 3.30 K/uL Red Blood Count 3.62 M/uL Hemoglobin 10.5 g/dL Hematocrit 31.6 % Mean Corpuscular Volume 87.3 fL Mean Corpuscular Hemoglobin 29.0 pg Mean Corpuscular Hemoglobin Concent 33.2 g/dl Platelet Count 118 K/uL Mean Platelet Volume 9.9 fL Neutrophils (%) (Auto) 60.3 % Lymphocytes (%) (Auto) 27.0 % Monocytes (%) (Auto) 7.0 % Eosinophils (%) (Auto) 4.5 % Basophils (%) (Auto) 0.9 % Neutrophils # (Auto) 1.99 K/uL Lymphocytes # (Auto) 0.89 K/uL Monocytes # (Auto) 0.23 K/uL Eosinophils # (Auto) 0.15 K/uL Basophils # (Auto) 0.03 K/uL RDW Standard Deviation 47.6 fL RDW Coefficient of Variation 14.8 % Immature Granulocyte % (Auto) 0.3 % Immature Granulocyte # (Auto) 0.01 K/uL Sodium Level 145 mmol/L Potassium Level 3.3 mmol/L Chloride Level 114 mmol/L Carbon Dioxide Level 23 mmol/L Anion Gap 8.0 mmol/L Blood Urea Nitrogen 38 mg/dl Creatinine 3.50 mg/dl Est Creatinine Clear Calc Drug Dose 29.1 ml/min Estimated GFR () 21.7 Estimated GFR (Non- 18.7 BUN/Creatinine Ratio 11.0 Random Glucose 96 mg/dl Calcium Level 7.7 mg/dl Phosphorus Level 4.7 mg/dl Assessment & Plan 56 yo M with h/o CKD Stage 4 presents with severe asymptomatic hypocalcemia. 1. Hypocalcemia-likely multifactorial in setting of ESRD, hypomagnesemia, and low vitamin D. Pt remains asymptomatic. Continues on HD today. Serial ionized calcium ordered with replacement per Nephro protocol as spelled out in progress note and ionized Ca is consistently>1 Cont per Nephro recs. PO calcium restarted. 2. Hypomagnesemia-replace IV and add PO replacement. 3. ESRD-HD initiated 01/08 Cont per Nephro 4. Atrial fibrillation-was initially sinus roger, but went into atrial fibrillation while on first HD treatment and spontaneously converted back to sinus roger. Cont to monitor and control rate PRN. Anticoagulation contraindicated in the setting of GI bleed in the past. 5. h/o CVA in 2001 embolic stroke as a complication of carotid surgery- residual speech issues. Cont ASA 81 and Lipitor 80mg dose. 6. HTN-uncontrolled. On Norvasc 10mg, Coreg 25 BID and Hytrin 7mg PO BID, confirmed with patient. Coreg held because of the bradycardia. Hydralazine given PRN today during HD, however, BP looks better since we added back his oxycodone. 7. Chronic back pain. On oxycodone q8hrs. Restarted now, likely contributing to higher blood pressures. 8. Vitamin D def-replacing 50K q2d per Nephro recs. Was on 50K qweek. 9. Anemia of CKD-no indication for blood transfusion. Cont to monitor 10. Thrombocytopenia 11. Hypokalemia-replaced PO DVT prophy: Heparin, SCDs FULL CODE DISPOSITION: anticipate d/c home when medically stable DO Aamir Higgins Hospitalist Consultants: Nephro. Current Inpatient Medications: Current Inpatient Medications Medications (Trade) Dose Ordered Sig/Graciela Route Start Time Stop Time Status Last Admin Dose Admin Acetaminophen (Tylenol Tab) 650 mg Q4H PRN PO 01/07/17 04:15 02/06/17 04:14 Amlodipine Besylate (Norvasc Tab) 10 mg DAILY PO 01/07/17 09:00 02/06/17 08:59 01/07/17 06:11 10 MG Aspirin (Aspirin Chew) 81 mg DAILY PO 01/07/17 09:00 02/06/17 08:59 01/08/17 09:20 81 MG Citalopram Hydrobromide (celeXA TAB) 20 mg DAILY PO 01/07/17 09:00 02/06/17 08:59 01/08/17 09:20 20 MG Ferrous Sulfate (Feosol Tab) 325 mg DAILY PO 01/07/17 09:00 02/06/17 08:59 01/08/17 09:21 325 MG Terazosin HCl (Hytrin Cap) 5 mg BID PO 01/07/17 09:00 02/06/17 08:59 01/07/17 20:27 5 MG Terazosin HCl (Hytrin Cap) 2 mg BID PO 01/07/17 09:00 02/06/17 08:59 01/07/17 20:27 2 MG Febuxostat (Uloric) 40 mg DAILY PO 01/07/17 09:00 02/06/17 08:59 01/08/17 08:30 40 MG Pantoprazole Sodium (Protonix Tab) 40 mg QAM PO 01/07/17 09:00 02/06/17 08:59 01/08/17 09:21 40 MG Magnesium Oxide (Mag-Ox Tab) 400 mg BID PO 01/07/17 09:00 02/06/17 08:59 01/08/17 09:22 400 MG Miscellaneous Information (Pending Order) 1 ea Q6H N/A 01/07/17 14:00 02/06/17 13:59 Ergocalciferol (Vitamin D Cap) 50,000 interunit Q2D@0900 PO 01/07/17 14:00 01/25/17 12:00 01/07/17 14:23 50,000 INTERUNIT Calcium Carbonate (oS-Yahir 500 TAB) 1,250 mg TID PO 01/07/17 14:00 02/06/17 13:59 01/08/17 09:22 1,250 MG Calcium Acetate (Phoslo Cap) 667 mg TIDM PO 01/07/17 16:45 02/06/17 16:44 01/08/17 08:27 667 MG Hydralazine HCl (HydrALAZINE INJ) 10 mg Q6H PRN IV. 01/07/17 16:00 02/06/17 15:59 01/08/17 11:36 10 MG Carvedilol (Coreg Tab) 12.5 mg BID PO 01/07/17 21:00 02/06/17 20:59 Atorvastatin Calcium (Lipitor Tab) 80 mg QAM PO 01/08/17 09:00 02/07/17 08:59 Heparin Sodium (Porcine) (Heparin Sq 5000 Unit/0.5ml) 5,000 unit Q8 SQ 01/07/17 22:00 02/06/17 21:59 01/08/17 05:51 5,000 UNIT Oxycodone HCl (Roxicodone Immediate Rel Tab) 5 mg Q8 PO 01/07/17 17:00 01/21/17 16:59 01/08/17 05:53 5 MG Calcium Gluconate 1000 mg/Sodium Chloride 60 ml @ 240 mls/hr TODAY@1300 IV 01/08/17 13:00 01/08/17 18:00
[2017-01-09] MEDS: HydrALAZINE HCL 20 MG/ML VIAL IV. PRN (04:30)
[2017-01-09 06:09] LABS: BASO % 0.7 %; BASO ABS # 0.03 K/uL (0-0.2); COMPLETE YES; EOS % 3.2 %; HEMATOCRIT 31.5 % (42-52); IG% 0.2 %; LYMPH ABS # 1.14 K/uL (1.2-3.4); MEAN CELL VOLUME 87.7 fL (80-100); MONO % 12.3 %; NEUT % 57.6 %; PLATELET COUNT 109 K/uL (130-400); RED BLOOD COUNT 3.59 M/uL (4.7-6.1); WHITE BLOOD COUNT 4.39 K/uL (4.8-10.8)
[2017-01-09] MEDS: HEPARIN SOD 5000 UNIT/0.5 ML CARP SQ SCH ×3 (06:15→21:59)
[2017-01-09] MEDS: OXYCODONE HCL IR 5 MG TAB (IMMEDIATE RELEASE) PO SCH ×3 (06:15→21:56)
[2017-01-09 06:46] LABS: CALCIUM 8.3 mg/dl (8.5-10.1); CREATININE 3.7 mg/dl (0.60-1.40); MAGNESIUM 2.1 mg/dl (1.8-2.4); POTASSIUM 3.5 mmol/L (3.5-5.1)
[2017-01-09 06:54] LABS: PHOSPHORUS 2.7 mg/dl (2.5-4.9)
[2017-01-09] MEDS ORDERED: NURSING VERBAL MED ORDER ONE (07:15)
[2017-01-09] MEDS ORDERED: CALCIUM GLUCONATE 10% 1,000 MG in SODIUM CHLORIDE 0.9% 50ML 50 ML IV SCH (08:00)
--- NOTE | 2017-01-09 08:22 | Nephrology Progress Note ---
Nephrology Progress Note Date of Service: Jan 09, 2017. Subjective 56 yo male with ckd stage 5 with significant hypocalcemia with a mature fistula. pt doing well. pt requesting that he be able to shower. no chest pain and with no complaints at this time. Objective Date Time Temp Pulse Resp B/P (MAP) Pulse Ox O2 Delivery O2 Flow Rate FiO2 01/09/17 07:31 36.7 62 17 150/80 (103) 95 Room Air 01/09/17 04:06 37.1 66 17 181/79 (113) 96 Room Air 01/09/17 04:00 Room Air 01/09/17 00:00 Room Air 01/08/17 23:53 36.8 52 17 144/64 (90) 94 Room Air 01/08/17 20:25 36.8 55 18 169/76 (107) 96 Room Air 01/08/17 20:01 97 Room Air 01/08/17 17:05 97 Room Air 01/08/17 15:52 37.0 58 16 155/72 (99) 97 Room Air 01/08/17 14:06 36.5 81 191/68 (109) 01/08/17 13:00 67 205/98 01/08/17 12:32 36.5 53 20 166/76 (106) 98 Room Air 01/08/17 12:30 66 214/104 01/08/17 12:00 61 187/65 01/08/17 12:00 Room Air 01/08/17 11:30 58 166/76 01/08/17 11:10 53 185/82 01/08/17 10:50 63 178/74 01/08/17 10:30 36.7 61 156/82 (106) 01/08/17 08:18 36.7 57 20 188/77 (114) 95 Room Air Physical Exam: General-aaox3 Eyes-no scleral icterus ENT-mmm Neck-supple Lungs-clear Heart-regular Abdomen-bs+ s/nt/nd Extremities-no c/c/e Neuro-nonfocal Current Inpatient Medications Medications (Trade) Dose Ordered Sig/Graciela Route Start Time Stop Time Status Last Admin Dose Admin Acetaminophen (Tylenol Tab) 650 mg Q4H PRN PO 01/07/17 04:15 02/06/17 04:14 Amlodipine Besylate (Norvasc Tab) 10 mg DAILY PO 01/07/17 09:00 02/06/17 08:59 01/08/17 13:57 10 MG Aspirin (Aspirin Chew) 81 mg DAILY PO 01/07/17 09:00 02/06/17 08:59 01/08/17 09:20 81 MG Citalopram Hydrobromide (celeXA TAB) 20 mg DAILY PO 01/07/17 09:00 02/06/17 08:59 01/08/17 09:20 20 MG Ferrous Sulfate (Feosol Tab) 325 mg DAILY PO 01/07/17 09:00 02/06/17 08:59 01/08/17 09:21 325 MG Terazosin HCl (Hytrin Cap) 5 mg BID PO 01/07/17 09:00 02/06/17 08:59 01/08/17 20:16 5 MG Terazosin HCl (Hytrin Cap) 2 mg BID PO 01/07/17 09:00 02/06/17 08:59 01/08/17 20:16 2 MG Febuxostat (Uloric) 40 mg DAILY PO 01/07/17 09:00 02/06/17 08:59 01/08/17 08:30 40 MG Pantoprazole Sodium (Protonix Tab) 40 mg QAM PO 01/07/17 09:00 02/06/17 08:59 01/08/17 09:21 40 MG Magnesium Oxide (Mag-Ox Tab) 400 mg BID PO 01/07/17 09:00 02/06/17 08:59 01/08/17 20:16 400 MG Miscellaneous Information (Pending Order) 1 ea Q6H N/A 01/07/17 14:00 02/06/17 13:59 01/08/17 22:30 1 EA Ergocalciferol (Vitamin D Cap) 50,000 interunit Q2D@0900 PO 01/07/17 14:00 01/25/17 12:00 01/07/17 14:23 50,000 INTERUNIT Calcium Carbonate (oS-Yahir 500 TAB) 1,250 mg TID PO 01/07/17 14:00 02/06/17 13:59 01/08/17 20:16 1,250 MG Calcium Acetate (Phoslo Cap) 667 mg TIDM PO 01/07/17 16:45 02/06/17 16:44 01/08/17 17:36 667 MG Hydralazine HCl (HydrALAZINE INJ) 10 mg Q6H PRN IV. 01/07/17 16:00 02/06/17 15:59 01/09/17 04:30 10 MG Carvedilol (Coreg Tab) 12.5 mg BID PO 01/07/17 21:00 02/06/17 20:59 01/08/17 20:16 12.5 MG Atorvastatin Calcium (Lipitor Tab) 80 mg QAM PO 01/08/17 09:00 02/07/17 08:59 01/08/17 13:58 80 MG Heparin Sodium (Porcine) (Heparin Sq 5000 Unit/0.5ml) 5,000 unit Q8 SQ 01/07/17 22:00 02/06/17 21:59 01/09/17 06:15 5,000 UNIT Oxycodone HCl (Roxicodone Immediate Rel Tab) 5 mg Q8 PO 01/07/17 17:00 01/21/17 16:59 01/09/17 06:15 5 MG Calcitriol (Rocaltrol Cap) 1 mcg QAM PO 01/08/17 15:30 02/07/17 15:29 01/08/17 17:36 1 MCG Calcium Gluconate 1000 mg/Sodium Chloride 60 ml @ 120 mls/hr TODAY@0800 IV 01/09/17 08:00 01/09/17 08:29 Last 24 Hours Test 01/08/17 09:38 01/08/17 16:46 01/08/17 22:33 01/09/17 05:50 Ionized Calcium 1.02 mmol/l 1.15 mmol/l 1.11 mmol/l 1.08 mmol/l White Blood Count 4.39 K/uL Red Blood Count 3.59 M/uL Hemoglobin 10.4 g/dL Hematocrit 31.5 % Mean Corpuscular Volume 87.7 fL Mean Corpuscular Hemoglobin 29.0 pg Mean Corpuscular Hemoglobin Concent 33.0 g/dl Platelet Count 109 K/uL Mean Platelet Volume 10.0 fL Neutrophils (%) (Auto) 57.6 % Lymphocytes (%) (Auto) 26.0 % Monocytes (%) (Auto) 12.3 % Eosinophils (%) (Auto) 3.2 % Basophils (%) (Auto) 0.7 % Neutrophils # (Auto) 2.53 K/uL Lymphocytes # (Auto) 1.14 K/uL Monocytes # (Auto) 0.54 K/uL Eosinophils # (Auto) 0.14 K/uL Basophils # (Auto) 0.03 K/uL RDW Standard Deviation 48.3 fL RDW Coefficient of Variation 14.9 % Immature Granulocyte % (Auto) 0.2 % Immature Granulocyte # (Auto) 0.01 K/uL Sodium Level 142 mmol/L Potassium Level 3.5 mmol/L Chloride Level 109 mmol/L Carbon Dioxide Level 26 mmol/L Anion Gap 7.0 mmol/L Blood Urea Nitrogen 33 mg/dl Creatinine 3.70 mg/dl Est Creatinine Clear Calc Drug Dose 25.1 ml/min Estimated GFR () 20.2 Estimated GFR (Non- 17.5 BUN/Creatinine Ratio 9.0 Random Glucose 97 mg/dl Calcium Level 8.3 mg/dl Phosphorus Level 2.7 mg/dl Magnesium Level 2.1 mg/dl Assessment & Plan ESRD-pt ckd stage 5-secondary to significant electrolyte abnormalities and recommend he start chronic dialysis. pt is now ESRD-dialysis dependent. continue to do dialysis on a 3 calcium bath and give prn doses of calcium gluconate to help raise the calcium levels. on oral calcium and oral calcitriol as well. working on having him accepted to the [facility] dialysis unit in [facility]. Greatly appreciate case supervisor's help in facilitating this. ok from renal perspective to shower. ionized calcium levels are slowly improving and are now above 1 which is much better. continue iv calcium supplemenation. would like to have calcium levels improved where he does not need iv calcium supplementation before considering sending him home. tentatively will be thursday afternoon after dialysis for possible discharge if things continue to improve.
[2017-01-09] MEDS: PANTOprazole SOD 40 MG TAB PO SCH (09:05)
[2017-01-09] MEDS: ATORVASTATIN 40 MG TAB PO SCH (09:06)
[2017-01-09] MEDS: FERROUS SULFATE 325 MG TAB PO SCH (09:06)
[2017-01-09] MEDS: CALCIUM CARBONATE 1250MG TAB PO SCH ×3 (09:06→21:49)
[2017-01-09] MEDS: CALCIUM ACETATE 667MG GELCAP PO SCH ×3 (09:07→16:44)
[2017-01-09] MEDS: CITALOPRAM 20 MG TAB PO SCH (09:07)
[2017-01-09] MEDS: FEBUXOSTAT 40 MG TAB PO SCH (09:07)
[2017-01-09] MEDS: ERGOCALCIFEROL 50,000 INTER.UNIT CAP PO SCH (09:07)
[2017-01-09] MEDS: CALCITRIOL 0.25 MCG CAP PO SCH (09:08)
[2017-01-09] MEDS: MAGNESIUM OXIDE 400 MG TAB PO SCH ×2 (09:08→21:50)
[2017-01-09] MEDS: ASPIRIN 81 MG CHEW PO SCH (09:12)
[2017-01-09] MEDS: CARVEDILOL 12.5 MG TAB PO SCH ×2 (12:57→21:00)
[2017-01-09] MEDS: AMLODIPINE BESYLATE 5 MG TAB PO SCH (12:58)
--- NOTE | 2017-01-09 22:14 | Progress Note ---
Medicine Progress Note Date & Time of Visit: Jan 09, 2017 at 15:38. Subjective tolerating PO asymptomatic doing well with HD sessions asking to shower Objective Last 8 Hrs Date Time Temp Pulse Resp B/P (MAP) Pulse Ox O2 Delivery O2 Flow Rate FiO2 01/09/17 12:30 Room Air 01/09/17 12:15 50 174/96 01/09/17 12:00 59 185/79 01/09/17 11:45 54 154/90 01/09/17 11:37 36.7 58 18 159/92 (114) 94 01/09/17 11:30 57 176/91 01/09/17 11:15 53 174/80 01/09/17 11:00 52 159/92 01/09/17 10:45 48 157/76 01/09/17 10:30 48 147/72 01/09/17 10:15 46 157/73 01/09/17 10:00 45 167/70 01/09/17 09:45 46 140/78 01/09/17 09:30 51 169/83 01/09/17 09:20 49 158/86 01/09/17 09:10 36.6 60 164/92 (116) 01/09/17 08:00 Room Air Physical Exam: GEN: WNWD, in no acute distress, alert and appropriate, some speech difficulties but is lucid HEENT: NC/AT, MMM CARDIO: reg rate, S1/2 heard without m/g/r LUNGS: CTA bilaterally, no crackles, rales or wheezes, good diaphragmatic excursion ABD: soft, non-tender, non-distended, no rebound or guarding, +BS EXTREMITY: RP and DP palpable 2+ bilat, no LE swelling or edema, extremities are warm and well-perfused. birthmark on R forearm. NEURO: CN 2-12 grossly intact MUSC: 5/5 strength throughout, no gross focal deficits, ambulatory without issues. SKIN: warm and dry Laboratory Results: 01/09/17 05:50 Red Blood Count 3.59, Mean Corpuscular Volume 87.7, Mean Corpuscular Hemoglobin 29.0, Mean Corpuscular Hemoglobin Concent 33.0, Mean Platelet Volume 10.0, Neutrophils (%) (Auto) 57.6, Lymphocytes (%) (Auto) 26.0, Monocytes (%) (Auto) 12.3, Eosinophils (%) (Auto) 3.2, Basophils (%) (Auto) 0.7, Neutrophils # (Auto ) 2.53, Lymphocytes # (Auto) 1.14, Monocytes # (Auto) 0.54, Eosinophils # (Auto ) 0.14, Basophils # (Auto) 0.03 01/09/17 05:50 Test 01/07/17 04:38 01/07/17 08:34 01/07/17 10:50 01/07/17 16:25 25-Hydroxy Vitamin D Total 20.8 ng/ml (30-100) Parathyroid Hormone (Intact) 492.1 pg/mL (11.1-79.5) Hepatitis A IgM Antibody NON-REACTIVE (NON-REACTIVE) Hepatitis B Surface Antigen NEG (NEG) Hepatitis B Surface Antibody NEG Hepatitis B Core IgM Antibody NON-REACTIVE (NON-REACTIVE) Hepatitis C Antibody NON-REACTIVE (NON-REACTIVE) Hepatitis C Ab Signal/Cutoff Ratio 0.01 (LESS THAN 1.0) Prothrombin Time 11.3 SECONDS (9.0-12.0) Prothromb Time International Ratio 1.1 (0.9-1.1) Thyroid Stimulating Hormone (TSH) 2.250 uIu/ml (0.300-4.500) Test 01/09/17 05:50 01/09/17 14:58 White Blood Count 4.39 K/uL (4.8-10.8) Red Blood Count 3.59 M/uL (4.7-6.1) Hemoglobin 10.4 g/dL (14.0-18.0) Hematocrit 31.5 % (42-52) Mean Corpuscular Volume 87.7 fL (80-100) Mean Corpuscular Hemoglobin 29.0 pg (25-34) Mean Corpuscular Hemoglobin Concent 33.0 g/dl (32-36) Platelet Count 109 K/uL (130-400) Mean Platelet Volume 10.0 fL (7.4-10.4) Neutrophils (%) (Auto) 57.6 % Lymphocytes (%) (Auto) 26.0 % Monocytes (%) (Auto) 12.3 % Eosinophils (%) (Auto) 3.2 % Basophils (%) (Auto) 0.7 % Neutrophils # (Auto) 2.53 K/uL (1.4-6.5) Lymphocytes # (Auto) 1.14 K/uL (1.2-3.4) Monocytes # (Auto) 0.54 K/uL (0.11-0.59) Eosinophils # (Auto) 0.14 K/uL (0-0.5) Basophils # (Auto) 0.03 K/uL (0-0.2) RDW Standard Deviation 48.3 fL (36.4-46.3) RDW Coefficient of Variation 14.9 % (11.5-14.5) Immature Granulocyte % (Auto) 0.2 % Immature Granulocyte # (Auto) 0.01 K/uL (0.00-0.02) Anion Gap 7.0 mmol/L (3-11) Est Creatinine Clear Calc Drug Dose 25.1 ml/min Estimated GFR () 20.2 Estimated GFR (Non- 17.5 BUN/Creatinine Ratio 9.0 (10-20) Calcium Level 8.3 mg/dl (8.5-10.1) Phosphorus Level 2.7 mg/dl (2.5-4.9) Magnesium Level 2.1 mg/dl (1.8-2.4) Ionized Calcium 1.16 mmol/l (1.12-1.32) Last 24 Hours Test 01/08/17 16:46 01/08/17 22:33 01/09/17 05:50 01/09/17 14:58 Ionized Calcium 1.15 mmol/l 1.11 mmol/l 1.08 mmol/l 1.16 mmol/l White Blood Count 4.39 K/uL Red Blood Count 3.59 M/uL Hemoglobin 10.4 g/dL Hematocrit 31.5 % Mean Corpuscular Volume 87.7 fL Mean Corpuscular Hemoglobin 29.0 pg Mean Corpuscular Hemoglobin Concent 33.0 g/dl Platelet Count 109 K/uL Mean Platelet Volume 10.0 fL Neutrophils (%) (Auto) 57.6 % Lymphocytes (%) (Auto) 26.0 % Monocytes (%) (Auto) 12.3 % Eosinophils (%) (Auto) 3.2 % Basophils (%) (Auto) 0.7 % Neutrophils # (Auto) 2.53 K/uL Lymphocytes # (Auto) 1.14 K/uL Monocytes # (Auto) 0.54 K/uL Eosinophils # (Auto) 0.14 K/uL Basophils # (Auto) 0.03 K/uL RDW Standard Deviation 48.3 fL RDW Coefficient of Variation 14.9 % Immature Granulocyte % (Auto) 0.2 % Immature Granulocyte # (Auto) 0.01 K/uL Sodium Level 142 mmol/L Potassium Level 3.5 mmol/L Chloride Level 109 mmol/L Carbon Dioxide Level 26 mmol/L Anion Gap 7.0 mmol/L Blood Urea Nitrogen 33 mg/dl Creatinine 3.70 mg/dl Est Creatinine Clear Calc Drug Dose 25.1 ml/min Estimated GFR () 20.2 Estimated GFR (Non- 17.5 BUN/Creatinine Ratio 9.0 Random Glucose 97 mg/dl Calcium Level 8.3 mg/dl Phosphorus Level 2.7 mg/dl Magnesium Level 2.1 mg/dl Assessment & Plan 56 yo M with h/o CKD Stage 4 presents with severe asymptomatic hypocalcemia. 1. Hypocalcemia-likely multifactorial in setting of ESRD, hypomagnesemia, and low vitamin D. Pt remains asymptomatic. Continues on HD today. Serial ionized calcium ordered with replacement per Nephro protocol as spelled out in progress note and ionized Ca is consistently>1 Cont per Nephro recs. PO calcium restarted. 2. ESRD-HD initiated 01/08 Cont per Nephro 3. Paroxysmal atrial fibrillation-was initially sinus roger, but went into atrial fibrillation while on first HD treatment and spontaneously converted back to sinus roger. Cont to monitor and control rate PRN. Anticoagulation contraindicated in the setting of GI bleed in the past. 4. h/o CVA in 2001 embolic stroke as a complication of carotid surgery- residual speech issues. Cont ASA 81 and Lipitor 80mg dose. 6. HTN-uncontrolled. On Norvasc 10mg, Coreg decreased in setting of bradycardia, and Hytrin 7mg PO BID, confirmed with patient. Hydralazine given PRN today during HD, however, BP looks better since we added back his oxycodone. 7. Chronic back pain. On oxycodone q8hrs. Restarted now, likely contributing to higher blood pressures. 8. Vitamin D def-replacing 50K q2d per Nephro recs. Was on 50K qweek. 9. Anemia of CKD-no indication for blood transfusion. Cont to monitor 10. Thrombocytopenia DVT prophy: Heparin, SCDs FULL CODE DISPOSITION: anticipate d/c home when medically stable DO Aamir Higgins Hospitalist Consultants: Nephro. Current Inpatient Medications: Current Inpatient Medications Medications (Trade) Dose Ordered Sig/Graciela Route Start Time Stop Time Status Last Admin Dose Admin Acetaminophen (Tylenol Tab) 650 mg Q4H PRN PO 01/07/17 04:15 02/06/17 04:14 Amlodipine Besylate (Norvasc Tab) 10 mg DAILY PO 01/07/17 09:00 02/06/17 08:59 01/09/17 12:58 10 MG Aspirin (Aspirin Chew) 81 mg DAILY PO 01/07/17 09:00 02/06/17 08:59 01/09/17 09:12 81 MG Citalopram Hydrobromide (celeXA TAB) 20 mg DAILY PO 01/07/17 09:00 02/06/17 08:59 01/09/17 09:07 20 MG Ferrous Sulfate (Feosol Tab) 325 mg DAILY PO 01/07/17 09:00 02/06/17 08:59 01/09/17 09:06 325 MG Terazosin HCl (Hytrin Cap) 5 mg BID PO 01/07/17 09:00 02/06/17 08:59 01/09/17 12:58 5 MG Terazosin HCl (Hytrin Cap) 2 mg BID PO 01/07/17 09:00 02/06/17 08:59 01/09/17 12:58 2 MG Febuxostat (Uloric) 40 mg DAILY PO 01/07/17 09:00 02/06/17 08:59 01/09/17 09:07 40 MG Pantoprazole Sodium (Protonix Tab) 40 mg QAM PO 01/07/17 09:00 02/06/17 08:59 01/09/17 09:05 40 MG Magnesium Oxide (Mag-Ox Tab) 400 mg BID PO 01/07/17 09:00 02/06/17 08:59 01/09/17 09:08 400 MG Miscellaneous Information (Pending Order) 1 ea Q6H N/A 01/07/17 14:00 02/06/17 13:59 01/09/17 09:04 1 EA Ergocalciferol (Vitamin D Cap) 50,000 interunit Q2D@0900 PO 01/07/17 14:00 9/24/17 12:00 01/09/17 09:07 50,000 INTERUNIT Calcium Carbonate (oS-Yahir 500 TAB) 1,250 mg TID PO 01/07/17 14:00 02/06/17 13:59 01/09/17 13:29 1,250 MG Calcium Acetate (Phoslo Cap) 667 mg TIDM PO 01/07/17 16:45 02/06/17 16:44 01/09/17 13:29 667 MG Hydralazine HCl (HydrALAZINE INJ) 10 mg Q6H PRN IV. 01/07/17 16:00 02/06/17 15:59 01/09/17 04:30 10 MG Carvedilol (Coreg Tab) 12.5 mg BID PO 01/07/17 21:00 02/06/17 20:59 01/09/17 12:57 12.5 MG Atorvastatin Calcium (Lipitor Tab) 80 mg QAM PO 01/08/17 09:00 02/07/17 08:59 01/09/17 09:06 80 MG Heparin Sodium (Porcine) (Heparin Sq 5000 Unit/0.5ml) 5,000 unit Q8 SQ 01/07/17 22:00 02/06/17 21:59 01/09/17 13:33 5,000 UNIT Oxycodone HCl (Roxicodone Immediate Rel Tab) 5 mg Q8 PO 01/07/17 17:00 01/21/17 16:59 01/09/17 13:30 5 MG Calcitriol (Rocaltrol Cap) 1 mcg QAM PO 01/08/17 15:30 02/07/17 15:29 01/09/17 09:08 1 MCG
[2017-01-10] VITALS (10 sets, daily range): BP systolic 119–155; BP diastolic 60–75; PULSE 46–80; TEMP 36.5–37; O2SAT 94–99
[2017-01-10] MEDS ORDERED: NURSING VERBAL MED ORDER ONE (00:45)
[2017-01-10] MEDS ORDERED: CALCIUM GLUCONATE 10% 1,000 MG in SODIUM CHLORIDE 0.9% 50ML 50 ML IV STA (00:55)
[2017-01-10] MEDS: OXYCODONE HCL IR 5 MG TAB (IMMEDIATE RELEASE) PO SCH ×3 (06:17→21:11)
[2017-01-10] MEDS: HEPARIN SOD 5000 UNIT/0.5 ML CARP SQ SCH ×3 (06:19→21:12)
[2017-01-10 07:17] LABS: BASO % 0.7 %; BASO ABS # 0.03 K/uL (0-0.2); COMPLETE YES; LYMPH % 30.6 %; LYMPH ABS # 1.24 K/uL (1.2-3.4); MEAN CELL VOLUME 89.1 fL (80-100); MEAN CORPUSCULAR HGB CONC 32.5 g/dl (32-36); MEAN PLATELET VOLUME 9.9 fL (7.4-10.4); MONO % 10.9 %; NEUT % 53.8 %; PLATELET COUNT 116 K/uL (130-400); RED BLOOD COUNT 3.59 M/uL (4.7-6.1); WHITE BLOOD COUNT 4.05 K/uL (4.8-10.8)
[2017-01-10 07:44] LABS: BUN/CREATININE RATIO 7.8 (10-20); CALCIUM 8.6 mg/dl (8.5-10.1); CREATININE 3.6 mg/dl (0.60-1.40); MAGNESIUM 2.1 mg/dl (1.8-2.4); PHOSPHORUS 3.2 mg/dl (2.5-4.9); POTASSIUM 3.9 mmol/L (3.5-5.1)
[2017-01-10] MEDS: ASPIRIN 81 MG CHEW PO SCH (09:00)
[2017-01-10] MEDS: CARVEDILOL 6.25 MG TAB PO SCH ×2 (09:37→21:00)
[2017-01-10] MEDS: MAGNESIUM OXIDE 400 MG TAB PO SCH ×2 (09:37→21:11)
[2017-01-10] MEDS: FEBUXOSTAT 40 MG TAB PO SCH (09:39)
[2017-01-10] MEDS: CALCITRIOL 0.25 MCG CAP PO SCH (09:39)
[2017-01-10] MEDS: CALCIUM ACETATE 667MG GELCAP PO SCH ×3 (09:39→16:11)
[2017-01-10] MEDS: PANTOprazole SOD 40 MG TAB PO SCH (10:40)
[2017-01-10] MEDS: AMLODIPINE BESYLATE 5 MG TAB PO SCH (10:40)
[2017-01-10] MEDS: CALCIUM CARBONATE 1250MG TAB PO SCH ×3 (10:40→21:11)
[2017-01-10] MEDS: FERROUS SULFATE 325 MG TAB PO SCH (10:40)
[2017-01-10] MEDS: ATORVASTATIN 40 MG TAB PO SCH (10:40)
[2017-01-10] MEDS: CITALOPRAM 20 MG TAB PO SCH (10:40)
--- NOTE | 2017-01-10 10:44 | Nephrology Progress Note ---
Nephrology Progress Note Date of Service: Jan 10, 2017. Subjective 56 yo male with ckd stage 5 with significant hypocalcemia with a mature fistula. pts ionized calcium was good this morning. did get another dose of iv calcium last night. this mornings ionized calcium is normal. pt did have an asymptomatic run of pvcs-7 beat run this morning while resting. Objective Date Time Temp Pulse Resp B/P (MAP) Pulse Ox O2 Delivery O2 Flow Rate FiO2 01/10/17 08:28 95 Room Air 01/10/17 07:40 36.7 48 18 135/63 (87) 96 Room Air 01/10/17 04:00 95 Room Air 01/10/17 04:00 36.5 67 16 146/75 (98) 95 Room Air 01/10/17 00:00 95 Room Air 01/10/17 00:00 37.0 46 18 155/69 (97) 95 Room Air 01/10/17 00:00 95 Room Air 01/09/17 20:54 50 130/53 (78) 01/09/17 20:05 36.7 52 18 166/80 (108) 97 Room Air 01/09/17 20:00 96 Room Air 01/09/17 16:00 Room Air 01/09/17 15:57 36.8 51 20 149/73 (98) 97 Room Air 01/09/17 12:30 Room Air 01/09/17 12:15 50 174/96 01/09/17 12:00 59 185/79 01/09/17 11:45 54 154/90 01/09/17 11:37 36.7 58 18 159/92 (114) 94 01/09/17 11:30 57 176/91 01/09/17 11:15 53 174/80 01/09/17 11:00 52 159/92 01/09/17 10:45 48 157/76 Physical Exam: General-aaox3 Eyes-no scleral icterus ENT-mmm Neck-supple Lungs-clear Heart-rrr Abdomen-bs+ s/nt/nd Extremities-no c/c/e Neuro-nonfocal Current Inpatient Medications Medications (Trade) Dose Ordered Sig/Graciela Route Start Time Stop Time Status Last Admin Dose Admin Acetaminophen (Tylenol Tab) 650 mg Q4H PRN PO 01/07/17 04:15 02/06/17 04:14 Amlodipine Besylate (Norvasc Tab) 10 mg DAILY PO 01/07/17 09:00 02/06/17 08:59 01/09/17 12:58 10 MG Aspirin (Aspirin Chew) 81 mg DAILY PO 01/07/17 09:00 02/06/17 08:59 01/09/17 09:12 81 MG Citalopram Hydrobromide (celeXA TAB) 20 mg DAILY PO 01/07/17 09:00 02/06/17 08:59 01/09/17 09:07 20 MG Ferrous Sulfate (Feosol Tab) 325 mg DAILY PO 01/07/17 09:00 02/06/17 08:59 01/09/17 09:06 325 MG Terazosin HCl (Hytrin Cap) 5 mg BID PO 01/07/17 09:00 02/06/17 08:59 01/10/17 09:38 5 MG Terazosin HCl (Hytrin Cap) 2 mg BID PO 01/07/17 09:00 02/06/17 08:59 01/10/17 09:38 2 MG Febuxostat (Uloric) 40 mg DAILY PO 01/07/17 09:00 02/06/17 08:59 01/10/17 09:39 40 MG Pantoprazole Sodium (Protonix Tab) 40 mg QAM PO 01/07/17 09:00 02/06/17 08:59 01/09/17 09:05 40 MG Magnesium Oxide (Mag-Ox Tab) 400 mg BID PO 01/07/17 09:00 02/06/17 08:59 01/10/17 09:37 400 MG Miscellaneous Information (Pending Order) 1 ea Q6H N/A 01/07/17 14:00 02/06/17 13:59 01/09/17 22:30 1 EA Ergocalciferol (Vitamin D Cap) 50,000 interunit Q2D@0900 PO 01/07/17 14:00 01/25/17 12:00 01/09/17 09:07 50,000 INTERUNIT Calcium Carbonate (oS-Yahir 500 TAB) 1,250 mg TID PO 01/07/17 14:00 02/06/17 13:59 01/09/17 21:49 1,250 MG Calcium Acetate (Phoslo Cap) 667 mg TIDM PO 01/07/17 16:45 02/06/17 16:44 01/10/17 09:39 667 MG Hydralazine HCl (HydrALAZINE INJ) 10 mg Q6H PRN IV. 01/07/17 16:00 02/06/17 15:59 01/09/17 04:30 10 MG Atorvastatin Calcium (Lipitor Tab) 80 mg QAM PO 01/08/17 09:00 02/07/17 08:59 01/09/17 09:06 80 MG Heparin Sodium (Porcine) (Heparin Sq 5000 Unit/0.5ml) 5,000 unit Q8 SQ 01/07/17 22:00 02/06/17 21:59 01/10/17 06:19 5,000 UNIT Oxycodone HCl (Roxicodone Immediate Rel Tab) 5 mg Q8 PO 01/07/17 17:00 01/21/17 16:59 01/10/17 06:17 5 MG Calcitriol (Rocaltrol Cap) 1 mcg QAM PO 01/08/17 15:30 02/07/17 15:29 01/10/17 09:39 1 MCG Carvedilol (Coreg Tab) 6.25 mg BID PO 01/10/17 09:00 02/06/17 20:59 01/10/17 09:37 6.25 MG Calcium Gluconate 1000 mg/Sodium Chloride 60 ml @ 240 mls/hr NOW ONCE IV 01/10/17 10:45 01/10/17 10:59 UNV Last 24 Hours Test 01/09/17 14:58 01/09/17 23:35 01/10/17 07:02 Ionized Calcium 1.16 mmol/l 1.11 mmol/l 1.14 mmol/l White Blood Count 4.05 K/uL Red Blood Count 3.59 M/uL Hemoglobin 10.4 g/dL Hematocrit 32.0 % Mean Corpuscular Volume 89.1 fL Mean Corpuscular Hemoglobin 29.0 pg Mean Corpuscular Hemoglobin Concent 32.5 g/dl Platelet Count 116 K/uL Mean Platelet Volume 9.9 fL Neutrophils (%) (Auto) 53.8 % Lymphocytes (%) (Auto) 30.6 % Monocytes (%) (Auto) 10.9 % Eosinophils (%) (Auto) 4.0 % Basophils (%) (Auto) 0.7 % Neutrophils # (Auto) 2.18 K/uL Lymphocytes # (Auto) 1.24 K/uL Monocytes # (Auto) 0.44 K/uL Eosinophils # (Auto) 0.16 K/uL Basophils # (Auto) 0.03 K/uL RDW Standard Deviation 48.4 fL RDW Coefficient of Variation 14.7 % Immature Granulocyte % (Auto) 0.0 % Immature Granulocyte # (Auto) 0.00 K/uL Sodium Level 140 mmol/L Potassium Level 3.9 mmol/L Chloride Level 106 mmol/L Carbon Dioxide Level 30 mmol/L Anion Gap 4.0 mmol/L Blood Urea Nitrogen 28 mg/dl Creatinine 3.60 mg/dl Est Creatinine Clear Calc Drug Dose 25.8 ml/min Estimated GFR () 20.9 Estimated GFR (Non- 18.1 BUN/Creatinine Ratio 7.8 Random Glucose 94 mg/dl Calcium Level 8.6 mg/dl Phosphorus Level 3.2 mg/dl Magnesium Level 2.1 mg/dl Assessment & Plan ESRD-pt ckd stage 5-plan on dialysis again on thursday and hopefully if accepted to local [facility] unit-will be ok for discharge after dialysis. Anemia of renal failure-hg goal of 10 to 11 and will redose procrit on thursday. Hypocalcemia-thought to be from renal failure-improving with calcium supplementation. will redose another gram this morning with the run of pvcs. to recheck ionized calcium in am. Access-does have some bruising over access-recommend warm compress to help break up any clots.
[2017-01-10] MEDS ORDERED: CALCIUM GLUCONATE 10% 1,000 MG in SODIUM CHLORIDE 0.9% 50ML 50 ML IV ONE (10:45)
--- NOTE | 2017-01-10 17:50 | Progress Note ---
Medicine Progress Note Date & Time of Visit: Jan 10, 2017 at 16:25. Subjective tolerating PO states that he is asymptomatic and awaiting HD on Thursday would like to go outside to get some fresh air. given IV calcium replacement today per Nephro no HD today. Objective Last 8 Hrs Date Time Temp Pulse Resp B/P (MAP) Pulse Ox O2 Delivery O2 Flow Rate FiO2 01/10/17 16:00 36.9 80 18 119/62 (81) 94 01/10/17 12:44 95 Room Air 01/10/17 11:24 36.7 50 18 141/66 (91) 99 Room Air 01/10/17 08:28 95 Room Air Physical Exam: GEN: WNWD, in no acute distress, alert and appropriate, ambulatory HEENT: NC/AT, MMM CARDIO: reg rate, S1/2 heard without m/g/r LUNGS: CTA bilaterally, no crackles, rales or wheezes, good diaphragmatic excursion ABD: soft, non-tender, non-distended, no rebound or guarding, +BS EXTREMITY: RP and DP palpable 2+ bilat, no LE swelling or edema, extremities are warm and well-perfused. birthmark on R forearm. NEURO: CN 2-12 grossly intact MUSC: 5/5 strength throughout, no gross focal deficits, ambulatory without issues. SKIN: warm and dry Laboratory Results: 01/10/17 07:02 Red Blood Count 3.59, Mean Corpuscular Volume 89.1, Mean Corpuscular Hemoglobin 29.0, Mean Corpuscular Hemoglobin Concent 32.5, Mean Platelet Volume 9.9, Neutrophils (%) (Auto) 53.8, Lymphocytes (%) (Auto) 30.6, Monocytes (%) (Auto) 10.9, Eosinophils (%) (Auto) 4.0, Basophils (%) (Auto) 0.7, Neutrophils # (Auto ) 2.18, Lymphocytes # (Auto) 1.24, Monocytes # (Auto) 0.44, Eosinophils # (Auto ) 0.16, Basophils # (Auto) 0.03 01/10/17 07:02 Test 01/07/17 04:38 01/07/17 08:34 01/07/17 10:50 01/07/17 16:25 25-Hydroxy Vitamin D Total 20.8 ng/ml (30-100) Parathyroid Hormone (Intact) 492.1 pg/mL (11.1-79.5) Hepatitis A IgM Antibody NON-REACTIVE (NON-REACTIVE) Hepatitis B Surface Antigen NEG (NEG) Hepatitis B Surface Antibody NEG Hepatitis B Core IgM Antibody NON-REACTIVE (NON-REACTIVE) Hepatitis C Antibody NON-REACTIVE (NON-REACTIVE) Hepatitis C Ab Signal/Cutoff Ratio 0.01 (LESS THAN 1.0) Prothrombin Time 11.3 SECONDS (9.0-12.0) Prothromb Time International Ratio 1.1 (0.9-1.1) Thyroid Stimulating Hormone (TSH) 2.250 uIu/ml (0.300-4.500) Test 01/10/17 07:02 White Blood Count 4.05 K/uL (4.8-10.8) Red Blood Count 3.59 M/uL (4.7-6.1) Hemoglobin 10.4 g/dL (14.0-18.0) Hematocrit 32.0 % (42-52) Mean Corpuscular Volume 89.1 fL (80-100) Mean Corpuscular Hemoglobin 29.0 pg (25-34) Mean Corpuscular Hemoglobin Concent 32.5 g/dl (32-36) Platelet Count 116 K/uL (130-400) Mean Platelet Volume 9.9 fL (7.4-10.4) Neutrophils (%) (Auto) 53.8 % Lymphocytes (%) (Auto) 30.6 % Monocytes (%) (Auto) 10.9 % Eosinophils (%) (Auto) 4.0 % Basophils (%) (Auto) 0.7 % Neutrophils # (Auto) 2.18 K/uL (1.4-6.5) Lymphocytes # (Auto) 1.24 K/uL (1.2-3.4) Monocytes # (Auto) 0.44 K/uL (0.11-0.59) Eosinophils # (Auto) 0.16 K/uL (0-0.5) Basophils # (Auto) 0.03 K/uL (0-0.2) RDW Standard Deviation 48.4 fL (36.4-46.3) RDW Coefficient of Variation 14.7 % (11.5-14.5) Immature Granulocyte % (Auto) 0.0 % Immature Granulocyte # (Auto) 0.00 K/uL (0.00-0.02) Anion Gap 4.0 mmol/L (3-11) Est Creatinine Clear Calc Drug Dose 25.8 ml/min Estimated GFR () 20.9 Estimated GFR (Non- 18.1 BUN/Creatinine Ratio 7.8 (10-20) Calcium Level 8.6 mg/dl (8.5-10.1) Ionized Calcium 1.14 mmol/l (1.12-1.32) Phosphorus Level 3.2 mg/dl (2.5-4.9) Magnesium Level 2.1 mg/dl (1.8-2.4) Last 24 Hours Test 01/09/17 23:35 01/10/17 07:02 Ionized Calcium 1.11 mmol/l 1.14 mmol/l White Blood Count 4.05 K/uL Red Blood Count 3.59 M/uL Hemoglobin 10.4 g/dL Hematocrit 32.0 % Mean Corpuscular Volume 89.1 fL Mean Corpuscular Hemoglobin 29.0 pg Mean Corpuscular Hemoglobin Concent 32.5 g/dl Platelet Count 116 K/uL Mean Platelet Volume 9.9 fL Neutrophils (%) (Auto) 53.8 % Lymphocytes (%) (Auto) 30.6 % Monocytes (%) (Auto) 10.9 % Eosinophils (%) (Auto) 4.0 % Basophils (%) (Auto) 0.7 % Neutrophils # (Auto) 2.18 K/uL Lymphocytes # (Auto) 1.24 K/uL Monocytes # (Auto) 0.44 K/uL Eosinophils # (Auto) 0.16 K/uL Basophils # (Auto) 0.03 K/uL RDW Standard Deviation 48.4 fL RDW Coefficient of Variation 14.7 % Immature Granulocyte % (Auto) 0.0 % Immature Granulocyte # (Auto) 0.00 K/uL Sodium Level 140 mmol/L Potassium Level 3.9 mmol/L Chloride Level 106 mmol/L Carbon Dioxide Level 30 mmol/L Anion Gap 4.0 mmol/L Blood Urea Nitrogen 28 mg/dl Creatinine 3.60 mg/dl Est Creatinine Clear Calc Drug Dose 25.8 ml/min Estimated GFR () 20.9 Estimated GFR (Non- 18.1 BUN/Creatinine Ratio 7.8 Random Glucose 94 mg/dl Calcium Level 8.6 mg/dl Phosphorus Level 3.2 mg/dl Magnesium Level 2.1 mg/dl Assessment & Plan 56 yo M with h/o CKD Stage 4 presents with severe asymptomatic hypocalcemia. Hemodialysis initiated on 01/07 with subsequent improvement in electrolytes along with IV calcium replacement. Has been ambulatory and very stable. Pt remains on telemetry and had an asymptomatic run of PVCs overnight. 1. Hypocalcemia-likely multifactorial in setting of ESRD, hypomagnesemia, and low vitamin D. Pt remains asymptomatic. Continues on HD today. Serial ionized calcium ordered with replacement PRN. Cont PO Calcium. 2. End stage renal disease requiring dialysis-HD initiated 01/07. Cont per Nephro. Next HD scheduled for Thursday 3. Paroxysmal atrial fibrillation-was initially sinus roger, but went into atrial fibrillation while on first HD treatment and spontaneously converted back to sinus roger. Cont to monitor and control rate PRN. Anticoagulation contraindicated in the setting of GI bleed in the past. 4. h/o CVA in 2001 embolic stroke as a complication of carotid surgery- residual speech issues. Cont ASA 81 and Lipitor 80mg dose. 6. HTN-uncontrolled. On Norvasc 10mg, Coreg decreased in setting of bradycardia, and Hytrin 7mg PO BID, confirmed with patient. Hydralazine given PRN today during HD, however, BP looks better since we added back his oxycodone. 7. Chronic back pain. On oxycodone q8hrs. Restarted with improvement in his blood pressures. 8. Vitamin D def-replacing 50K q2d per Nephro recs. Was on 50K qweek [employer] 9. Anemia of CKD-no indication for blood transfusion. Cont to monitor 10. Thrombocytopenia DVT prophy: Heparin, SCDs FULL CODE DISPOSITION: anticipate d/c home when medically stable, [facility]. Current Inpatient Medications: Current Inpatient Medications Medications (Trade) Dose Ordered Sig/Graciela Route Start Time Stop Time Status Last Admin Dose Admin Acetaminophen (Tylenol Tab) 650 mg Q4H PRN PO 01/07/17 04:15 02/06/17 04:14 Amlodipine Besylate (Norvasc Tab) 10 mg DAILY PO 01/07/17 09:00 02/06/17 08:59 01/10/17 10:40 10 MG Aspirin (Aspirin Chew) 81 mg DAILY PO 01/07/17 09:00 02/06/17 08:59 01/10/17 09:00 81 MG Citalopram Hydrobromide (celeXA TAB) 20 mg DAILY PO 01/07/17 09:00 02/06/17 08:59 01/10/17 10:40 20 MG Ferrous Sulfate (Feosol Tab) 325 mg DAILY PO 01/07/17 09:00 02/06/17 08:59 01/10/17 10:40 325 MG Terazosin HCl (Hytrin Cap) 5 mg BID PO 01/07/17 09:00 02/06/17 08:59 01/10/17 09:38 5 MG Terazosin HCl (Hytrin Cap) 2 mg BID PO 01/07/17 09:00 02/06/17 08:59 01/10/17 09:38 2 MG Febuxostat (Uloric) 40 mg DAILY PO 01/07/17 09:00 02/06/17 08:59 01/10/17 09:39 40 MG Pantoprazole Sodium (Protonix Tab) 40 mg QAM PO 01/07/17 09:00 02/06/17 08:59 01/10/17 10:40 40 MG Magnesium Oxide (Mag-Ox Tab) 400 mg BID PO 01/07/17 09:00 02/06/17 08:59 01/10/17 09:37 400 MG Miscellaneous Information (Pending Order) 1 ea Q6H N/A 01/07/17 14:00 02/06/17 13:59 01/09/17 22:30 1 EA Ergocalciferol (Vitamin D Cap) 50,000 interunit Q2D@0900 PO 01/07/17 14:00 01/25/17 12:00 01/09/17 09:07 50,000 INTERUNIT Calcium Carbonate (oS-Yahir 500 TAB) 1,250 mg TID PO 01/07/17 14:00 02/06/17 13:59 01/10/17 14:28 1,250 MG Calcium Acetate (Phoslo Cap) 667 mg TIDM PO 01/07/17 16:45 02/06/17 16:44 01/10/17 16:11 667 MG Hydralazine HCl (HydrALAZINE INJ) 10 mg Q6H PRN IV. 01/07/17 16:00 10/6/17 15:59 01/09/17 04:30 10 MG Atorvastatin Calcium (Lipitor Tab) 80 mg QAM PO 01/08/17 09:00 02/07/17 08:59 01/10/17 10:40 80 MG Heparin Sodium (Porcine) (Heparin Sq 5000 Unit/0.5ml) 5,000 unit Q8 SQ 01/07/17 22:00 02/06/17 21:59 01/10/17 14:30 5,000 UNIT Oxycodone HCl (Roxicodone Immediate Rel Tab) 5 mg Q8 PO 01/07/17 17:00 01/21/17 16:59 01/10/17 14:29 5 MG Calcitriol (Rocaltrol Cap) 1 mcg QAM PO 01/08/17 15:30 02/07/17 15:29 01/10/17 09:39 1 MCG Carvedilol (Coreg Tab) 6.25 mg BID PO 01/10/17 09:00 02/06/17 20:59 01/10/17 09:37 6.25 MG
[2017-01-11] VITALS (8 sets, daily range): BP systolic 128–172; BP diastolic 63–94; PULSE 47–63; TEMP 36.3–36.9; O2SAT 95–99
[2017-01-11] MEDS: OXYCODONE HCL IR 5 MG TAB (IMMEDIATE RELEASE) PO SCH ×3 (06:08→22:11)
[2017-01-11] MEDS: HEPARIN SOD 5000 UNIT/0.5 ML CARP SQ SCH ×3 (06:09→22:12)
[2017-01-11 07:37] LABS: CALCIUM 8.2 mg/dl (8.5-10.1); CREATININE 4.3 mg/dl (0.60-1.40); PHOSPHORUS 3.6 mg/dl (2.5-4.9); POTASSIUM 3.6 mmol/L (3.5-5.1)
[2017-01-11] MEDS: CALCIUM ACETATE 667MG GELCAP PO SCH ×3 (08:18→17:26)
[2017-01-11] MEDS: PANTOprazole SOD 40 MG TAB PO SCH (08:19)
[2017-01-11] MEDS: ERGOCALCIFEROL 50,000 INTER.UNIT CAP PO SCH (08:19)
[2017-01-11] MEDS: ATORVASTATIN 40 MG TAB PO SCH (08:19)
[2017-01-11] MEDS: FERROUS SULFATE 325 MG TAB PO SCH (08:20)
[2017-01-11] MEDS: CALCITRIOL 0.25 MCG CAP PO SCH (08:20)
[2017-01-11] MEDS: CALCIUM CARBONATE 1250MG TAB PO SCH ×3 (08:20→20:55)
[2017-01-11] MEDS: FEBUXOSTAT 40 MG TAB PO SCH (08:20)
[2017-01-11] MEDS: AMLODIPINE BESYLATE 5 MG TAB PO SCH (08:20)
[2017-01-11] MEDS: MAGNESIUM OXIDE 400 MG TAB PO SCH ×2 (08:20→20:57)
[2017-01-11] MEDS: ASPIRIN 81 MG CHEW PO SCH (08:21)
[2017-01-11] MEDS: CITALOPRAM 20 MG TAB PO SCH (08:21)
[2017-01-11] MEDS: CARVEDILOL 6.25 MG TAB PO SCH ×2 (08:21→20:57)
[2017-01-11] MEDS ORDERED: NURSING VERBAL MED ORDER ONE ×2 (11:00→17:30)
--- NOTE | 2017-01-11 11:19 | Nephrology Progress Note ---
Nephrology Progress Note Date of Service: Jan 11, 2017. Subjective 56 yo male with ckd stage 5 with significant hypocalcemia with a mature fistula. pts ionized calcium mildly low today. pt asymptomatic and doing well. no complaints. Objective Date Time Temp Pulse Resp B/P (MAP) Pulse Ox O2 Delivery O2 Flow Rate FiO2 01/11/17 08:38 Room Air 01/11/17 07:26 36.7 48 18 128/70 (89) 95 Room Air 01/11/17 04:16 Room Air 01/11/17 04:12 36.3 52 20 155/67 (96) 96 Room Air 01/11/17 00:21 Room Air 01/10/17 23:38 36.7 60 20 136/66 (89) 97 Room Air 01/10/17 20:50 Room Air 01/10/17 19:49 36.5 51 14 142/60 (87) 98 01/10/17 16:43 95 Room Air 01/10/17 16:00 36.9 80 18 119/62 (81) 94 01/10/17 12:44 95 Room Air 01/10/17 11:24 36.7 50 18 141/66 (91) 99 Room Air Physical Exam: General-aaox3 Eyes-no scleral icterus ENT-mmm Neck-supple Lungs-cta Heart-bradycardia Abdomen-bs+ s/nt/nd Extremities-no c/c/e Neuro-nonfocal Current Inpatient Medications Medications (Trade) Dose Ordered Sig/Graciela Route Start Time Stop Time Status Last Admin Dose Admin Acetaminophen (Tylenol Tab) 650 mg Q4H PRN PO 01/07/17 04:15 02/06/17 04:14 Amlodipine Besylate (Norvasc Tab) 10 mg DAILY PO 01/07/17 09:00 02/06/17 08:59 01/11/17 08:20 10 MG Aspirin (Aspirin Chew) 81 mg DAILY PO 01/07/17 09:00 02/06/17 08:59 01/11/17 08:21 81 MG Citalopram Hydrobromide (celeXA TAB) 20 mg DAILY PO 01/07/17 09:00 02/06/17 08:59 01/11/17 08:21 20 MG Ferrous Sulfate (Feosol Tab) 325 mg DAILY PO 01/07/17 09:00 02/06/17 08:59 01/11/17 08:20 325 MG Terazosin HCl (Hytrin Cap) 5 mg BID PO 01/07/17 09:00 02/06/17 08:59 01/11/17 08:19 5 MG Terazosin HCl (Hytrin Cap) 2 mg BID PO 01/07/17 09:00 02/06/17 08:59 01/11/17 08:19 2 MG Febuxostat (Uloric) 40 mg DAILY PO 01/07/17 09:00 02/06/17 08:59 01/11/17 08:20 40 MG Pantoprazole Sodium (Protonix Tab) 40 mg QAM PO 01/07/17 09:00 02/06/17 08:59 01/11/17 08:19 40 MG Magnesium Oxide (Mag-Ox Tab) 400 mg BID PO 01/07/17 09:00 02/06/17 08:59 01/11/17 08:20 400 MG Miscellaneous Information (Pending Order) 1 ea Q6H N/A 01/07/17 14:00 02/06/17 13:59 01/10/17 22:32 1 EA Ergocalciferol (Vitamin D Cap) 50,000 interunit Q2D@0900 PO 01/07/17 14:00 01/25/17 12:00 01/11/17 08:19 50,000 INTERUNIT Calcium Carbonate (oS-Yahir 500 TAB) 1,250 mg TID PO 01/07/17 14:00 02/06/17 13:59 01/11/17 08:20 1,250 MG Calcium Acetate (Phoslo Cap) 667 mg TIDM PO 01/07/17 16:45 02/06/17 16:44 01/11/17 08:18 667 MG Hydralazine HCl (HydrALAZINE INJ) 10 mg Q6H PRN IV. 01/07/17 16:00 02/06/17 15:59 01/09/17 04:30 10 MG Atorvastatin Calcium (Lipitor Tab) 80 mg QAM PO 01/08/17 09:00 02/07/17 08:59 01/11/17 08:19 80 MG Heparin Sodium (Porcine) (Heparin Sq 5000 Unit/0.5ml) 5,000 unit Q8 SQ 01/07/17 22:00 02/06/17 21:59 01/11/17 06:09 5,000 UNIT Oxycodone HCl (Roxicodone Immediate Rel Tab) 5 mg Q8 PO 01/07/17 17:00 01/21/17 16:59 01/11/17 06:08 5 MG Calcitriol (Rocaltrol Cap) 1 mcg QAM PO 01/08/17 15:30 02/07/17 15:29 01/11/17 08:20 1 MCG Carvedilol (Coreg Tab) 6.25 mg BID PO 01/10/17 09:00 02/06/17 20:59 01/11/17 08:21 6.25 MG Calcium Gluconate 2000 mg/Sodium Chloride 70 ml @ 240 mls/hr NOW ONCE IV 01/11/17 11:00 01/11/17 11:17 UNV Miscellaneous Information (Nursing Verbal Med Order) 1 ea ONE ONCE N/A 01/11/17 11:00 01/11/17 11:01 UNV Last 24 Hours Test 01/11/17 06:47 Sodium Level 142 mmol/L Potassium Level 3.6 mmol/L Chloride Level 107 mmol/L Carbon Dioxide Level 29 mmol/L Anion Gap 6.0 mmol/L Blood Urea Nitrogen 39 mg/dl Creatinine 4.30 mg/dl Est Creatinine Clear Calc Drug Dose 21.6 ml/min Estimated GFR () 16.9 Estimated GFR (Non- 14.6 BUN/Creatinine Ratio 9.0 Random Glucose 83 mg/dl Calcium Level 8.2 mg/dl Ionized Calcium 1.06 mmol/l Phosphorus Level 3.6 mg/dl Magnesium Level 2.0 mg/dl Assessment & Plan ESRD-pt ckd stage 5-plan on dialysis again on thursday. hopefully if accepted to local [facility]-will be ok for discharge after dialysis on thursday. Anemia of renal failure-hg goal of 10 to 11 and will redose procrit on thursday. Hypocalcemia-thought to be from renal failure-improving with calcium supplementation. giving another 2 grams of calcium gluconate. will increase calcitriol to 2mcg a day.
[2017-01-11] MEDS ORDERED: CALCIUM GLUCONATE 10% 2,000 MG in SODIUM CHLORIDE 0.9% 50ML 50 ML IV ONE (11:30)
[2017-01-11] MEDS ORDERED: CALCITRIOL 0.25 MCG CAP PO ONE (12:15)
[2017-01-12] VITALS (17 sets, daily range): BP systolic 109–160; BP diastolic 66–93; PULSE 43–54; TEMP 36.6–37; O2SAT 93
[2017-01-12] MEDS: HEPARIN SOD 5000 UNIT/0.5 ML CARP SQ SCH ×2 (05:56→14:25)
[2017-01-12] MEDS: OXYCODONE HCL IR 5 MG TAB (IMMEDIATE RELEASE) PO SCH ×2 (05:57→14:24)
[2017-01-12] MEDS: CARVEDILOL 6.25 MG TAB PO SCH (07:39)
[2017-01-12] MEDS: AMLODIPINE BESYLATE 5 MG TAB PO SCH (07:39)
[2017-01-12 07:41] LABS: BUN/CREATININE RATIO 10.1 (10-20); CALCIUM 8.4 mg/dl (8.5-10.1); CREATININE 4.5 mg/dl (0.60-1.40); MAGNESIUM 2.4 mg/dl (1.8-2.4); PHOSPHORUS 3.7 mg/dl (2.5-4.9); POTASSIUM 3.5 mmol/L (3.5-5.1)
[2017-01-12] MEDS: MAGNESIUM OXIDE 400 MG TAB PO SCH (07:42)
[2017-01-12] MEDS: PANTOprazole SOD 40 MG TAB PO SCH (07:42)
[2017-01-12] MEDS: FERROUS SULFATE 325 MG TAB PO SCH (07:42)
[2017-01-12] MEDS: CITALOPRAM 20 MG TAB PO SCH (07:42)
[2017-01-12] MEDS: ATORVASTATIN 40 MG TAB PO SCH (07:42)
[2017-01-12] MEDS: CALCIUM ACETATE 667MG GELCAP PO SCH ×2 (07:42→11:33)
[2017-01-12] MEDS: CALCIUM CARBONATE 1250MG TAB PO SCH ×2 (07:42→14:24)
[2017-01-12] MEDS: FEBUXOSTAT 40 MG TAB PO SCH (07:43)
[2017-01-12] MEDS: ASPIRIN 81 MG CHEW PO SCH (07:47)
[2017-01-12] MEDS ORDERED: EPOETIN ALFA INJ 10,000 UNITS in SYRINGE 0 ML IV. SCH (08:00)
--- NOTE | 2017-01-12 08:53 | Progress Note ---
Medicine Progress Note Date & Time of Visit: Jan 11, 2017 at 10:17. Subjective Tolerating PO Asymptomatic Ambulatory Mentating at baseline. Objective Last 8 Hrs Date Time Temp Pulse Resp B/P (MAP) Pulse Ox O2 Delivery O2 Flow Rate FiO2 01/11/17 08:38 Room Air 01/11/17 07:26 36.7 48 18 128/70 (89) 95 Room Air 01/11/17 04:16 Room Air 01/11/17 04:12 36.3 52 20 155/67 (96) 96 Room Air Physical Exam: GEN: WNWD, in no acute distress, alert and appropriate, ambulatory HEENT: NC/AT, MMM CARDIO: reg rate, S1/2 heard without m/g/r LUNGS: CTA bilaterally, no crackles, rales or wheezes, good diaphragmatic excursion ABD: soft, non-tender, non-distended, no rebound or guarding, +BS EXTREMITY: RP and DP palpable 2+ bilat, no LE swelling or edema, extremities are warm and well-perfused. Birthmark on R forearm. NEURO: CN 2-12 grossly intact MUSC: 5/5 strength throughout, no gross focal deficits, ambulatory without issues. SKIN: warm and dry Laboratory Results: 01/10/17 07:02 Red Blood Count 3.59, Mean Corpuscular Volume 89.1, Mean Corpuscular Hemoglobin 29.0, Mean Corpuscular Hemoglobin Concent 32.5, Mean Platelet Volume 9.9, Neutrophils (%) (Auto) 53.8, Lymphocytes (%) (Auto) 30.6, Monocytes (%) (Auto) 10.9, Eosinophils (%) (Auto) 4.0, Basophils (%) (Auto) 0.7, Neutrophils # (Auto ) 2.18, Lymphocytes # (Auto) 1.24, Monocytes # (Auto) 0.44, Eosinophils # (Auto ) 0.16, Basophils # (Auto) 0.03 01/12/17 06:17 Test 01/07/17 04:38 01/07/17 08:34 01/07/17 10:50 01/07/17 16:25 25-Hydroxy Vitamin D Total 20.8 ng/ml (30-100) Parathyroid Hormone (Intact) 492.1 pg/mL (11.1-79.5) Hepatitis A IgM Antibody NON-REACTIVE (NON-REACTIVE) Hepatitis B Surface Antigen NEG (NEG) Hepatitis B Surface Antibody NEG Hepatitis B Core IgM Antibody NON-REACTIVE (NON-REACTIVE) Hepatitis C Antibody NON-REACTIVE (NON-REACTIVE) Hepatitis C Ab Signal/Cutoff Ratio 0.01 (LESS THAN 1.0) Prothrombin Time 11.3 SECONDS (9.0-12.0) Prothromb Time International Ratio 1.1 (0.9-1.1) Thyroid Stimulating Hormone (TSH) 2.250 uIu/ml (0.300-4.500) Test 01/10/17 07:02 01/11/17 06:47 01/12/17 06:17 White Blood Count 4.05 K/uL (4.8-10.8) Red Blood Count 3.59 M/uL (4.7-6.1) Hemoglobin 10.4 g/dL (14.0-18.0) Hematocrit 32.0 % (42-52) Mean Corpuscular Volume 89.1 fL (80-100) Mean Corpuscular Hemoglobin 29.0 pg (25-34) Mean Corpuscular Hemoglobin Concent 32.5 g/dl (32-36) Platelet Count 116 K/uL (130-400) Mean Platelet Volume 9.9 fL (7.4-10.4) Neutrophils (%) (Auto) 53.8 % Lymphocytes (%) (Auto) 30.6 % Monocytes (%) (Auto) 10.9 % Eosinophils (%) (Auto) 4.0 % Basophils (%) (Auto) 0.7 % Neutrophils # (Auto) 2.18 K/uL (1.4-6.5) Lymphocytes # (Auto) 1.24 K/uL (1.2-3.4) Monocytes # (Auto) 0.44 K/uL (0.11-0.59) Eosinophils # (Auto) 0.16 K/uL (0-0.5) Basophils # (Auto) 0.03 K/uL (0-0.2) RDW Standard Deviation 48.4 fL (36.4-46.3) RDW Coefficient of Variation 14.7 % (11.5-14.5) Immature Granulocyte % (Auto) 0.0 % Immature Granulocyte # (Auto) 0.00 K/uL (0.00-0.02) Ionized Calcium 1.06 mmol/l (1.12-1.32) Anion Gap 7.0 mmol/L (3-11) Est Creatinine Clear Calc Drug Dose 20.6 ml/min Estimated GFR () 16.0 Estimated GFR (Non- 13.8 BUN/Creatinine Ratio 10.1 (10-20) Calcium Level 8.4 mg/dl (8.5-10.1) Phosphorus Level 3.7 mg/dl (2.5-4.9) Magnesium Level 2.4 mg/dl (1.8-2.4) Last 24 Hours Test 01/11/17 06:47 Sodium Level 142 mmol/L Potassium Level 3.6 mmol/L Chloride Level 107 mmol/L Carbon Dioxide Level 29 mmol/L Anion Gap 6.0 mmol/L Blood Urea Nitrogen 39 mg/dl Creatinine 4.30 mg/dl Est Creatinine Clear Calc Drug Dose 21.6 ml/min Estimated GFR () 16.9 Estimated GFR (Non- 14.6 BUN/Creatinine Ratio 9.0 Random Glucose 83 mg/dl Calcium Level 8.2 mg/dl Ionized Calcium 1.06 mmol/l Phosphorus Level 3.6 mg/dl Magnesium Level 2.0 mg/dl Assessment & Plan 56 yo M with h/o CKD Stage 4 presents with severe asymptomatic hypocalcemia. Hemodialysis initiated on 01/07 with subsequent improvement in electrolytes along with IV calcium replacement. Has been ambulatory and very stable. Pt remains on telemetry and had an asymptomatic run of NSVT yesterday but no arrythmias overnight last night. 1. Hypocalcemia-likely multifactorial in setting of ESRD, hypomagnesemia, and low vitamin D. Pt remains asymptomatic. Next HD planned for Thursday with transition to HD center. Serial ionized calcium ordered with replacement PRN. Cont PO Calcium. Cont ergocalciferol q2D and calcitriol QAM. 2. End stage renal disease requiring dialysis-HD initiated 01/07. Cont per Nephro. Next HD scheduled for Thursday 3. Paroxysmal atrial fibrillation-was initially sinus roger, but went into atrial fibrillation while on first HD treatment and spontaneously converted back to sinus roger. Cont to monitor and control rate PRN. Anticoagulation contraindicated in the setting of GI bleed in the past. Coreg reduced in dose, will cont to titrate to avoid excessive bradycardia. 4. h/o CVA in 2001 embolic stroke as a complication of carotid surgery- residual speech issues. Cont ASA 81 and Lipitor 80mg dose. 6. HTN-uncontrolled. On Norvasc 10mg, Coreg decreased in setting of bradycardia, and Hytrin 7mg PO BID, confirmed with patient. Hydralazine given PRN today during HD, however, BP looks better since we added back his oxycodone. 7. Chronic back pain. On oxycodone q8hrs. Restarted with improvement in his blood pressures. 8. Vitamin D def-replacing 50K q2d per Nephro recs. Was on 50K qweek prior to hospitalization. 9. Anemia of CKD-no indication for blood transfusion. Cont to monitor 10. Thrombocytopenia DVT prophy: Heparin, SCDs FULL CODE DISPOSITION: anticipate d/c home when medically stable, likely after dialysis on Thu. Transition off telemetry to the floor. DO Aamir Higgins Hospitalist Consultants: Nephro. Current Inpatient Medications: Current Inpatient Medications Medications (Trade) Dose Ordered Sig/Graciela Route Start Time Stop Time Status Last Admin Dose Admin Acetaminophen (Tylenol Tab) 650 mg Q4H PRN PO 01/07/17 04:15 02/06/17 04:14 Amlodipine Besylate (Norvasc Tab) 10 mg DAILY PO 01/07/17 09:00 02/06/17 08:59 01/11/17 08:20 10 MG Aspirin (Aspirin Chew) 81 mg DAILY PO 01/07/17 09:00 02/06/17 08:59 01/11/17 08:21 81 MG Citalopram Hydrobromide (celeXA TAB) 20 mg DAILY PO 01/07/17 09:00 02/06/17 08:59 01/11/17 08:21 20 MG Ferrous Sulfate (Feosol Tab) 325 mg DAILY PO 01/07/17 09:00 02/06/17 08:59 01/11/17 08:20 325 MG Terazosin HCl (Hytrin Cap) 5 mg BID PO 01/07/17 09:00 02/06/17 08:59 01/11/17 08:19 5 MG Terazosin HCl (Hytrin Cap) 2 mg BID PO 01/07/17 09:00 02/06/17 08:59 01/11/17 08:19 2 MG Febuxostat (Uloric) 40 mg DAILY PO 01/07/17 09:00 02/06/17 08:59 01/11/17 08:20 40 MG Pantoprazole Sodium (Protonix Tab) 40 mg QAM PO 01/07/17 09:00 02/06/17 08:59 01/11/17 08:19 40 MG Magnesium Oxide (Mag-Ox Tab) 400 mg BID PO 01/07/17 09:00 02/06/17 08:59 01/11/17 08:20 400 MG Miscellaneous Information (Pending Order) 1 ea Q6H N/A 01/07/17 14:00 02/06/17 13:59 01/10/17 22:32 1 EA Ergocalciferol (Vitamin D Cap) 50,000 interunit Q2D@0900 PO 01/07/17 14:00 01/25/17 12:00 01/11/17 08:19 50,000 INTERUNIT Calcium Carbonate (oS-Yahir 500 TAB) 1,250 mg TID PO 01/07/17 14:00 02/06/17 13:59 01/11/17 08:20 1,250 MG Calcium Acetate (Phoslo Cap) 667 mg TIDM PO 01/07/17 16:45 02/06/17 16:44 01/11/17 08:18 667 MG Hydralazine HCl (HydrALAZINE INJ) 10 mg Q6H PRN IV. 01/07/17 16:00 02/06/17 15:59 01/09/17 04:30 10 MG Atorvastatin Calcium (Lipitor Tab) 80 mg QAM PO 01/08/17 09:00 02/07/17 08:59 01/11/17 08:19 80 MG Heparin Sodium (Porcine) (Heparin Sq 5000 Unit/0.5ml) 5,000 unit Q8 SQ 01/07/17 22:00 02/06/17 21:59 01/11/17 06:09 5,000 UNIT Oxycodone HCl (Roxicodone Immediate Rel Tab) 5 mg Q8 PO 01/07/17 17:00 01/21/17 16:59 01/11/17 06:08 5 MG Calcitriol (Rocaltrol Cap) 1 mcg QAM PO 01/08/17 15:30 02/07/17 15:29 01/11/17 08:20 1 MCG Carvedilol (Coreg Tab) 6.25 mg BID PO 01/10/17 09:00 02/06/17 20:59 01/11/17 08:21 6.25 MG
[2017-01-12] MEDS ORDERED: EPOETIN ALFA 10,000 UNITS/ML VIAL IV. ONE (09:00)
[2017-01-12] MEDS ORDERED: CALCITRIOL 0.25 MCG CAP PO SCH (09:00)
[2017-01-12] MEDS ORDERED: PHS667 PO (14:45)
[2017-01-12] MEDS ORDERED: CRG3125 PO (14:45)
[2017-01-12] MEDS ORDERED: CALC0.5C17 PO (14:45)
--- NOTE | 2017-01-12 14:55 | Discharge Instructions ---
Discharge Instructions Date of Service Jan 12, 2017. Admission Reason for Admission: Hypocalcemia Discharge Discharge Diagnosis / Problem: Hypocalcemia, ESRD requiring initiation of hemodialysis Discharge Goals Goal(s): Prevent Disease Progression Activity Recommendations Activity Limitations: per Instructions/Follow-up section . Instructions / Follow-Up Instructions / Follow-Up Please take all medications as instructed per discharge list. You have an appointment with PHIL Ocasio for follow-up of this hospitalization. This appointment is at Dr. Tijerina's office, and is set for @ 9:45am. Please bring all paperwork from this hospitalization with you. You have been set up for hemodialysis at [facility] on Mondays, Wednesdays and Fridays at 3:30m. Please follow-up with Dr. Haskins (Manager Business Process) as instructed. It was a pleasure taking care of you! Call if you have any questions or problems. You can reach a [facility] [facility] Hospitalist on duty at [facility] 24 hours a day by calling [phone]. Take care of yourself. Ashley Soliman DO [facility] Hospitalist Current Hospital Diet Patient's current hospital diet: Renal Diet, AHA Diet (Heart Healthy) Discharge Diet Recommended Diet: AHA Diet (Heart Healthy), Renal Diet Procedures Procedures Performed: Hemodialysis initiation Pending Studies Studies pending at discharge: no Medical Emergencies . Who to Call and When: Medical Emergencies: If at any time you feel your situation is an emergency, please call 911 immediately. . Non-Emergent Contact Non-Emergency issues call your: Primary Care Provider . . "Provider Documentation" section prepared by Ashley Soliman. . VTE Core Measure Inpt VTE Proph given/why not?: Unfractionated heparin SQ, SCD's
--- NOTE | 2017-01-12 16:27 | Dialysis Progress Note ---
Nephrology Dialysis Note Date of Service: Jan 12, 2017. Subjective seen on HD this am at 10. tolerating tx well; no n/v, no fasciculations, no dyspnea. Objective Date Time Temp Pulse Resp B/P (MAP) Pulse Ox O2 Delivery O2 Flow Rate FiO2 01/12/17 15:06 37.0 45 17 93 Room Air 01/12/17 12:30 37.0 45 153/75 (101) 01/12/17 12:00 45 160/75 01/12/17 11:45 44 109/93 01/12/17 11:30 45 126/69 01/12/17 11:15 46 140/69 01/12/17 11:00 47 139/68 01/12/17 10:45 45 153/76 01/12/17 10:30 46 140/70 01/12/17 10:15 45 151/73 01/12/17 10:00 49 122/73 01/12/17 09:45 44 126/70 01/12/17 09:30 45 132/69 01/12/17 09:15 43 131/66 01/12/17 09:05 44 151/69 01/12/17 08:55 36.8 54 144/81 (102) 01/12/17 08:00 Room Air 01/12/17 06:58 36.6 51 17 143/79 (100) 93 Room Air 01/12/17 00:00 Room Air 01/11/17 22:44 36.9 49 18 161/71 (101) 96 Room Air 01/11/17 20:53 60 169/79 (109) Physical Exam: General-aaox3 Eyes-no scleral icterus ENT-mmm Neck-supple Lungs-cta Heart-bradycardia in 40-50s Abdomen-bs+ s/nt/nd Extremities-no c/c/e Neuro-nonfocal Last 24 Hours Test 01/12/17 06:17 Sodium Level 141 mmol/L Potassium Level 3.5 mmol/L Chloride Level 106 mmol/L Carbon Dioxide Level 28 mmol/L Anion Gap 7.0 mmol/L Blood Urea Nitrogen 45 mg/dl Creatinine 4.50 mg/dl Est Creatinine Clear Calc Drug Dose 20.6 ml/min Estimated GFR () 16.0 Estimated GFR (Non- 13.8 BUN/Creatinine Ratio 10.1 Random Glucose 86 mg/dl Calcium Level 8.4 mg/dl Phosphorus Level 3.7 mg/dl Magnesium Level 2.4 mg/dl Assessment & Plan 56 y/o M w/ hx of stroke, ESRD 5 not on dialysis, HTN, progressive and now critical though fortunately asymptomatic hypocalcemia multifactorial from lack of consistent access to meds, from ESRD 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 Outpt calcium levels have consistently trended downward despite ER visits for repletion. Admitted and started on HD. Critical hypocalcemia w/ suppressed PTH, moderately elevated Ca, low D stores but D stores improved slightly from earlier this summer -improving with calcium supplementation. -d/c on increased calcitriol to 2mcg a day. -change D2 at d/c to weekly dosing -cont phosLo and Ca Carbonate supplements -f/u labs will be at outpt dialysis hypomagnesemia -replete po where possible ESRD -to start outpt HD at [facility] later this week under care of Dr Haskins; via avf ; ok for d/c from renal standpoint after d/c today HTN -may improve slightly w/ HD; cont amlodipine; avoid BB d/t bradycardia -pls check later in day > if still elevated, start ACEI (ok to use in house w/ his ckd/esrd) -consider baseline CXR, evelia if any hypoxia Anemia of ESRD -epo w/ HD Appreciate c/s; will follow with you. Care coordinated w/ Dr Soliman
[2017-01-12] MEDS ORDERED: CARVEDILOL 3.125 MG TAB PO SCH (21:00)
--- NOTE | 2017-01-13 08:36 | Discharge Summary ---
Discharge Summary Date of Service Jan 13, 2017. Discharge Summary Admission Date: Jan 07, 2017 at 04:10 Discharge Date: Jan 12, 2017 Discharge Disposition: Home Principal Diagnosis: Hypocalcemia ESRD-initiation of hemodialysis PAF-anticoagulation contraindicated h/o CVA HTN Chronic back pain Vitamin D def Anemia of CKD Thrombocytopenia Procedures: Hemodialysis Vaccinations: None. Consultations: Nephro. Pending Studies/Follow-Up: see instructions below Medication Reconciliation New Medications: Calcitriol (Calcitriol) 0.5 Mcg Cap 2 MG PO QAM for 30 Days, #120 CAP 0 Refills Calcium Acetate (Phoslo 667 Mg) 667 Mg Cap 667 MG PO TIDM for 30 Days, #90 CAP 3 Refills Carvedilol (Carvedilol) 3.125 Mg Tab 3.125 MG PO BID for 30 Days, #60 TAB 1 Refill Continued Medications: Amlodipine (Norvasc) 10 Mg Tab 10 MG PO DAILY Aspirin (Aspirin Chewable) 81 Mg Chew 81 MG PO DAILY Atorvastatin (Lipitor) 80 Mg Tab 80 MG PO DAILY, 5 Refills Calcium Carbonate (Tums) 500 Mg Chew 3 TAB PO QID, BTL Citalopram Hydrobromide (Citalopram Hydrobromide) 20 Mg Tab 20 MG PO DAILY, 3 Refills Ergocalciferol (Vitamin D 45926 Unit) 50,000 Unit Cap 1 TAB PO WK, CAP Febuxostat (Uloric) 40 Mg Tab 40 MG PO DAILY, 3 Refills Ferrous Sulfate (Ferrous Sulfate) 325 Mg Tab 325 MG PO DAILY Omeprazole (Prilosec) 20 Mg Capcr 20 MG PO DAILY Oxycodone HCl (Oxycodone HCl) 5 Mg Tab 5 MG PO Q8 Terazosin (Hytrin) 5 Mg Cap 5 MG PO BID Terazosin Hcl (Hytrin) 2 Mg Cap 2 MG PO BID Discontinued Medications: Carvedilol (Coreg) 25 Mg Tab 25 MG PO BID Admission Information HPI (per Admitting provider): 56 year old male with history of CKD 4, Atrial Fibrillation on Aspirin, CVA, Hypertension, HLD, presenting with low calcium level. Patient follows with Dr. Tijerina for PCP and Dr. Haskins for CKD. History obtained from patient and from Dr. Dalila Brown who signed out the patient to de. Patient has CKD 4 and underwent AV fistula placement around 6 months ago. For the past few months, patient has been managed by Dr. Haskins for hypocalcemia, attributed to his CKD. He had multiple ER visits to the [facility] ER recently for this. The last visit was on 01/04/17 wherein patient was apparently given IV Ca and discharged home. Today, outpatient lab work showed that the patient's potassium was 5.6, hence was directed to the ER. Patient went to [facility], and after discussion with Dr. Brown, he was advised to be transferred to [facility] for further management including possible initiation of hemodialysis. On exam, patient was seen resting in bed, comfortable, pleasant. Denies paresthesias, weakness, tremors. Also denies any headache, chest pain, dyspnea, abdominal pain ,nausea, changes with BM/Urination. No other symptoms. Physical Exam (per Admitting): General Appearance: WD/WN, no apparent distress Head: normocephalic, atraumatic Eyes: normal inspection, EOMI, sclerae normal ENT: normal ENT inspection, hearing grossly normal, pharynx normal Neck: supple, no adenopathy, thyroid normal, no JVD, trachea midline Respiratory/Chest: chest non-tender, lungs clear, normal breath sounds, no respiratory distress, no accessory muscle use Cardiovascular: regular rate, rhythm, no edema, no JVD, no murmur Abdomen/GI: normal bowel sounds, non tender, soft, no organomegaly Back: normal inspection, no CVA tenderness Extremities/Musculoskelatal: normal inspection, no calf tenderness, normal capillary refill, no pedal edema, normal range of motion, + pertinent finding (( +) AV fistula on left arm with good thrill) Neurologic/Psych: neon tube pumper II-XII nml as tested, no motor/sensory deficits, alert , normal mood/affect, oriented x 3 Skin: normal color, warm/dry, no rash Lymphatic: no adenopathy Hospital Course 56 yo M with h/o CKD Stage 4 presents with severe asymptomatic hypocalcemia. Hemodialysis initiated on 01/07 with subsequent improvement in electrolytes along with IV calcium replacement. Has been ambulatory and very stable. Pt remains on telemetry and had an asymptomatic run of NSVT (7 beats) but no arrythmias overnight last night (night prior to discharge). 1. Hypocalcemia-likely multifactorial in setting of ESRD, hypomagnesemia, and low vitamin D. Pt remains asymptomatic. Next HD planned for Thursday with transition to HD center. Serial ionized calcium ordered with replacement PRN. Cont PO Calcium. Cont ergocalciferol q2D and calcitriol QAM. 2. End stage renal disease requiring dialysis-HD initiated 01/07. Cont per Nephro. Next HD scheduled for Thursday 3. Paroxysmal atrial fibrillation-was initially sinus roger, but went into atrial fibrillation while on first HD treatment and spontaneously converted back to sinus roger. Cont to monitor and control rate PRN. Anticoagulation contraindicated in the setting of GI bleed in the past. Coreg reduced in dose, will cont to titrate to avoid excessive bradycardia. 4. h/o CVA in 2001 embolic stroke as a complication of carotid surgery- residual speech issues. Cont ASA 81 and Lipitor 80mg dose. 6. HTN-uncontrolled. On Norvasc 10mg, Coreg decreased in setting of bradycardia, and Hytrin 7mg PO BID, confirmed with patient. Hydralazine given PRN today during HD, however, BP looks better since we added back his oxycodone. 7. Chronic back pain. On oxycodone q8hrs. Restarted with improvement in his blood pressures. 8. Vitamin D def-replacing 50K q2d per Nephro recs. Was on 50K qweek prior to hospitalization. 9. Anemia of CKD-no indication for blood transfusion. Cont to monitor 10. Thrombocytopenia On day of discharge he had remained afebrile and hemodynamically stable. He was ambulatory and was mentating clearly. Physical exam was unremarkable and palpable thrill was present in his fistula. He underwent inpatient hemodialysis on day of discharge and did well. He was discharged in stable condition with outpatient follow-up with PCP. Also, he was established with an appointment MWF at the [facility] prior to discharge. Total time spent on discharge = 60 minutes This includes examination of the patient, discharge planning, medication reconciliation, and communication with other providers. Discharge Instructions [address] [address] Discharge Medical Patient Name: Christiano Kumar III Unit Number: [id number] Date of : 1960 Patient Status: Discharged Inpatient Attending Doctor: Ashley Soliman DO DI: Medical v4 Discharge Instructions Date of Service Jan 12, 2017. Admission Reason for Admission: Hypocalcemia Discharge Discharge Diagnosis / Problem: Hypocalcemia, ESRD requiring initiation of hemodialysis Discharge Goals Goal(s): Prevent Disease Progression Activity Recommendations Activity Limitations: per Instructions/Follow-up section . Instructions / Follow-Up Instructions / Follow-Up Please take all medications as instructed per discharge list. You have an appointment with PHIL Ocasio for follow-up of this hospitalization. This appointment is at Dr. Tijerina's office, and is set for @ 9:45am. Please bring all paperwork from this hospitalization with you. You have been set up for hemodialysis at [facility] on Mondays, Wednesdays and Fridays at 3:30m. Please follow-up with Dr. Haskins (Atmospheric Physics Professor) as instructed. It was a pleasure taking care of you! Call if you have any questions or problems. You can reach a [facility] at [facility] 24 hours a day by calling [phone]. Take care of yourself. Ashley Soliman DO [facility] Hospitalist Current Hospital Diet Patient's current hospital diet: Renal Diet, AHA Diet (Heart Healthy) Discharge Diet Recommended Diet: AHA Diet (Heart Healthy), Renal Diet Procedures Procedures Performed: Hemodialysis initiation Pending Studies Studies pending at discharge: no Medical Emergencies . Who to Call and When: Medical Emergencies: If at any time you feel your situation is an emergency, please call 911 immediately. . Non-Emergent Contact Non-Emergency issues call your: Primary Care Provider . . "Provider Documentation" section prepared by Ashley Soliman. . VTE Core Measure Inpt VTE Proph given/why not?: Unfractionated heparin SQ, SCD's Additional Copies To Zak Tijerina M.D.
== END 2017-01-12 15:30 | disposition home or self-care (01) | DRG 640 ==
LOC: EDBD 03:52 → C.EDA 03:56 → C.2T 04:10 → ENRESERV 04:43 → C.2T 10:22 → ENRESERV 01-11 14:49 → C.MED 01-11 15:50
PROVIDERS: ADMIT Internal Medicine; ATTEND Hospitalist
DX: E83.51 Hypocalcemia (principal); N18.6 End stage renal disease; Q60.0 Renal agenesis, unilateral; I48.91 Unspecified atrial fibrillation; Z79.82 Long term (current) use of aspirin; Z86.73 Personal history of transient ischemic attack (TIA), and cerebral infarction without residual deficits; E78.5 Hyperlipidemia, unspecified; Z83.3 Family history of diabetes mellitus; R00.1 Bradycardia, unspecified; I12.9 Hypertensive chronic kidney disease with stage 1 through stage 4 chronic kidney disease, or unspecified chronic kidney disease; I69.322 Dysarthria following cerebral infarction; Z95.820 Peripheral vascular angioplasty status with implants and grafts; Z98.84 Bariatric surgery status; E83.42 Hypomagnesemia; E55.9 Vitamin D deficiency, unspecified; D69.6 Thrombocytopenia, unspecified; D63.1 Anemia in chronic kidney disease

== ENCOUNTER 2017-03-03 05:06 | Day surgery (SDC) | payer OTHER ==
[2017-02-19 08:27] VITALS: BMI 27.0
--- NOTE | 2017-02-19 09:14 | PAT Medication Instructions ---
Service Date Feb 19, 2017. Current Home Medication List Amlodipine (Norvasc), 10 MG PO QAM Aspirin (Aspirin Chewable), 81 MG PO QAM Atorvastatin (Lipitor), 80 MG PO QPM Calcium Acetate (Phoslo 667 Mg), 667 MG PO TIDM Calcium Carbonate (Tums), 3 TAB PO HS Carvedilol (Carvedilol), 1 TAB PO BID Citalopram Hydrobromide (Citalopram Hydrobromide), 20 MG PO QAM Ergocalciferol (Vitamin D 50975 Unit), 1 TAB PO WK Febuxostat (Uloric), 40 MG PO QAM Omeprazole (Prilosec), 20 MG PO QAM Oxycodone HCl (Oxycodone HCl), 5 MG PO Q8 Medication Instructions For Your Scheduled Surgery - Hold the following medications the morning of surgery: Febuxostat (Uloric), 40 MG PO QAM Calcium Acetate (Phoslo 667 Mg), 667 MG PO TIDM - Take the following medications the morning of surgery with a sip of water OTHERWISE NOTHING TO EAT OR DRINK AFTER MIDNIGHT: Oxycodone HCl (Oxycodone HCl), 5 MG PO Q8h (may take if needed up to 4 hours prior to surgery) Amlodipine (Norvasc), 10 MG PO QAM Aspirin (Aspirin Chewable), 81 MG PO QAM (okay to continue per surgeon) Carvedilol (Carvedilol), 1 TAB PO BID Omeprazole (Prilosec), 20 MG PO QAM Citalopram Hydrobromide (Citalopram Hydrobromide), 20 MG PO QAM - Take the following medications as scheduled the night before surgery: Oxycodone HCl (Oxycodone HCl), 5 MG PO Q8h Calcium Carbonate (Tums), 3 TAB PO HS Atorvastatin (Lipitor), 80 MG PO QPM Carvedilol (Carvedilol), 1 TAB PO BID Calcium Acetate (Phoslo 667 Mg), 667 MG PO TIDM If you have any questions please call us at [phone] or [phone] or [phone]
[2017-02-19 09:49] LABS: BASO % 0.8 %; BASO ABS # 0.04 K/uL (0-0.2); COMPLETE YES; EOS % 4.4 %; HEMATOCRIT 32.1 % (42-52); IG% 0.4 %; MEAN CELL VOLUME 90.4 fL (80-100); MEAN CORPUSCULAR HEMOGLOBIN 29.3 pg (25-34); MEAN CORPUSCULAR HGB CONC 32.4 g/dl (32-36); MEAN PLATELET VOLUME 9.6 fL (7.4-10.4); MONO % 8.9 %; NEUT % 58.5 %; PLATELET COUNT 174 K/uL (130-400); RED BLOOD COUNT 3.55 M/uL (4.7-6.1); WHITE BLOOD COUNT 5.18 K/uL (4.8-10.8)
[2017-02-19 09:58] LABS: PARTIAL THROMBOPLASTIN RATIO 1.1; PROTHROMBIN TIME (PATIENT) 10.7 SECONDS (9.0-12.0)
[2017-02-19 10:15] LABS: BUN/CREATININE RATIO 9.9 (10-20); CALCIUM 8.2 mg/dl (8.5-10.1); CREATININE 4.48 mg/dl (0.60-1.40); POTASSIUM 3.7 mmol/L (3.5-5.1)
[~2017-03-03] VITALS: Ht 180.3 cm; Wt 91.0 kg
[~2017-03-03 05:06] MED LIST: AMLO-114 PO; ASPCH81X PO; ATOR-26 PO; CALC500C3 PO; CITA20TA4 PO; CRG625 PO; ERGO500011 PO; FEBU40TA PO; PHS667 PO; PRLSR20 PO; RXC5 PO
[2017-03-03 05:36] VITALS: BP 144/62; PULSE 52; TEMP 36.8; O2SAT 98; Ht 180.3 cm; Wt 91.0 kg
[2017-03-03] MEDS ORDERED: CEFAZOLIN 2000MG IV PUSH 10 ML IV SCH (06:00)
[2017-03-03] MEDS ORDERED: SODIUM CHLORIDE 0.9% 1000ML 1,000 ML IV SCH (06:00)
[2017-03-03 06:47] LABS: CALCIUM 8.1 mg/dl (8.5-10.1); CREATININE 4.61 mg/dl (0.60-1.40); POTASSIUM 3.2 mmol/L (3.5-5.1)
[2017-03-03] MEDS ORDERED: CONRAY 60% 50 ML VIAL ONE (06:52)
[2017-03-03] MEDS ORDERED: HEPARIN SOD (PORCINE) 1000 UNIT/ML 10 ML VIAL ONE (06:53)
[2017-03-03] MEDS ORDERED: BUPIVACAINE 0.5 % 5 MG/1 ML MPF 30ML VIAL ONE (06:53)
[2017-03-03] MEDS ORDERED: CEFAZOLIN SOD 1 GM VIAL ONE (06:53)
[2017-03-03] MEDS ORDERED: FENTANYL CITRATE INJ 50 MCG/1 ML 2 ML VIAL ONE ×2 (06:59→08:02)
[2017-03-03] MEDS ORDERED: ROCURONIUM BROMIDE 10 MG/ML 5 ML VIAL IV ONE (06:59)
[2017-03-03] MEDS ORDERED: LIDOCAINE HCL 2% 2 ML VIAL (20MG/ML) ONE (06:59)
[2017-03-03] MEDS ORDERED: MIDAZOLAM HCL 1 MG/ML 2ML VIAL ONE (06:59)
[2017-03-03] MEDS ORDERED: PROPOFOL IV EMULSION 10 MG/ML 20 ML VIAL IV ONE (06:59)
--- NOTE | 2017-03-03 07:28 | History & Physical Bridge Note ---
H&P Re-Evaluation Bridge Note: I have examined the patient, reviewed the History & Physical and in the interval since the performance of the History & Physical I have noted the following changes of clinical significance: No changes noted
[2017-03-03] MEDS ORDERED: PROMETHAZINE HCL INJ 6.25 MG in SODIUM CHLORIDE 0.9% 50ML 50 ML IV PRN (07:30)
[2017-03-03] MEDS ORDERED: EpHEDrine SULFATE INJ 50 MG/ML AMP IV PRN (07:30)
[2017-03-03] MEDS ORDERED: ATROPINE SULFATE 0.1 MG/ML 5ML SYR IV PRN (07:30)
[2017-03-03] MEDS ORDERED: ONDANSETRON INJ 2 MG/ML 2 ML VIAL IV PRN ×2 (07:30→09:45)
[2017-03-03] MEDS ORDERED: HYDROmorphone INJ 1 MG/ML SYR IV PRN (07:30)
[2017-03-03] MEDS ORDERED: GLYCOPYRROLATE INJ 0.2 MG/ML VIAL ONE ×2 (07:57→09:24)
[2017-03-03] MEDS ORDERED: ONDANSETRON INJ 2 MG/ML 2 ML VIAL ONE (07:57)
[2017-03-03] MEDS ORDERED: EpHEDrine SULFATE 50MG/5ML SYR ONE (07:57)
[2017-03-03] MEDS ORDERED: NEOSTIGMINE METHYLSULFATE 5 MG/5 ML SYR ONE (09:24)
[2017-03-03] MEDS ORDERED: MoRPHine SULFATE 4 MG/ML 1 ML CARP\\VIAL IV PRN (09:45)
[2017-03-03] MEDS ORDERED: OXYCODONE/ACETAMINOPHEN 5-325 TAB PO PRN ×2 (09:45)
[2017-03-03] MEDS ORDERED: MoRPHine SULFATE 2 MG/ML CARP IV PRN ×2 (09:45)
--- NOTE | 2017-03-03 09:49 | Discharge Instructions ---
Discharge Instructions Date of Service Mar 03, 2017. Admission Reason for Admission: Symptomatic Cholelithiasis Discharge Discharge Diagnosis / Problem: acute cholecystitis, cholelithiasis Discharge Goals Goal(s): Decrease discomfort, Improve function Activity Recommendations Activity Limitations: as noted below No heavy lifting over 20 pounds for 2 weeks No strenuous activity until cleared by surgeon No submerging incisions underwater for 2 weeks (no bathing, swimming, or hot tubs) No driving while taking narcotic pain medication or until you are pain free whichever comes last . Instructions / Follow-Up Instructions / Follow-Up You may shower in 24 hours, keep steri strips on incisions for 7 days and then remove. They may fall off on their own that is okay. You may take the dressing off of the upper midline incision before you shower. Walking and light activity is encouraged to prevent blood clots Follow-up with Dr. Bello as scheduled in 2 weeks, please call office at to make an appointment if you do not already have one PLEASE STOP THE OXYCODONE AND TAKE THE PERCOCET POST OPERATIVELY SCHEDULED. ONCE YOU RUN OUT OF THE PERCOCET YOU MAY GO BACK TO TAKING OXYCODONE THREE TIMES A DAY PRESCRIBED. THE PERCOCET HAS TYLENOL IN IT SO DO NOT TAKE TYLENOL WITH THE PERCOCET. IF YOU NEED SOMETHING ON TOP OF PERCOCET FOR PAIN YOU MAY TAKE IBUPROFEN NEEDED. Current Hospital Diet Patient's current hospital diet: Discharge Diet Recommended Diet: Regular Diet, Renal Diet Procedures Procedures Performed: Laparoscopic Cholecystectomy Pending Studies Studies pending at discharge: yes List of pending studies: Gallbladder pathology will be reviewed at follow-up visit Medical Emergencies . Who to Call and When: Medical Emergencies: If at any time you feel your situation is an emergency, please call 911 immediately. . Non-Emergent Contact Non-Emergency issues call your: Primary Care Provider, Surgeon Call Non-Emergent contact if: you have a fever, temperature is above 101.5, your pain is not controlled, your pain is worsening, your pain is unusual for you, wound has increased drainage, wound has increased redness, wound has increased pain . "Provider Documentation" section prepared by Caitlyn Childers. . VTE Core Measure Inpt VTE Proph given/why not?: SCD's [place] Drug Monitoring Program Search Results: patient reviewed within database, no issues identified
[2017-03-03] MEDS ORDERED: OXYC-57 PO (09:58)
[2017-03-03] MEDS: FENTANYL CITRATE INJ 50 MCG/1 ML 2 ML VIAL IV PRN ×2 (10:14→10:19)
--- NOTE | 2017-03-03 10:15 | Anesthesiology Progress Note ---
Anesthesia Post Op Note Date & Time Mar 03, 2017 at 10:15 Vital Signs Pain Intensity: 6 Vital Signs Past 12 Hours Date Time Temp Pulse Resp B/P (MAP) Pulse Ox O2 Delivery O2 Flow Rate FiO2 03/03/17 09:55 63 16 138/60 98 Oxymask 10 03/03/17 09:45 58 18 149/55 100 Oxymask 10 03/03/17 09:37 36.8 62 18 142/71 98 Oxymask 10 03/03/17 05:36 36.8 52 18 144/62 (89) 98 Room Air Notes Mental Status: alert / awake / arousable, participated in evaluation Pt Amnestic to Procedure: Yes Nausea / Vomiting: adequately controlled Pain: adequately controlled Airway Patency, RR, SpO2: stable & adequate BP & HR: stable & adequate Hydration State: stable & adequate Anesthetic Complications: no major complications apparent
[2017-03-03 11:00] VITALS: BP 120/69; PULSE 52; TEMP 36.8; O2SAT 94
[2017-03-03 11:30] VITALS: BP 127/61; PULSE 55; TEMP 36.8; O2SAT 96
[2017-03-03 12:00] VITALS: BP 142/67; PULSE 53; TEMP 36.7; O2SAT 96
[2017-03-03 12:30] VITALS: BP 137/67; PULSE 57; TEMP 36.7; O2SAT 94
--- NOTE | 2017-03-03 23:29 | OPERATIVE REPORT ---
DATE OF OPERATION: 03/03/2017 PREOPERATIVE DIAGNOSIS: Cholelithiasis, chronic cholecystitis. POSTOPERATIVE DIAGNOSIS: Same. PROCEDURE: Laparoscopic cholecystectomy. SURGEON: Dr. Bello. DOOR LINER HELPER: Caitlyn Childers PA-C. FINDINGS: The gallbladder wall was markedly thickened in the manner of acute cholecystitis. The cystic duct was mildly dilated. The liver was of normal size and contour. The plane between the gallbladder and the liver was difficult to establish. It was difficult to dissect the posterior wall away. I ended up entering the gallbladder, initially leaving the posterior wall, but then decided to resect it. The visible bowel appeared normal. There were some flimsy adhesions to the gallbladder. TECHNIQUE: The patient was given a general anesthetic and the area was prepped and draped in the usual sterile fashion. A transverse incision was made below the umbilicus, carried down through the subcutaneous tissue to the fascia, which was grasped with 2 Lori clamps and incised between. The peritoneum was identified and incised. The introducer was placed bluntly. The abdomen was then insufflated to a pressure of 15 mmHg with carbon dioxide. The upper midline, mid-clavicular and the anterior axillary introducers were placed under direct vision through small skin incisions. Traction was placed on the gallbladder. The adhesions were taken down using blunt dissection. There were some adhesions of the omentum to the undersurface into the right side of the falciform, which were also taken down using sharp and blunt dissection in order to be able to retract the omentum into the lower abdomen. Once the adhesions were taken down, I was able to grasp the gallbladder and elevate it. FINDINGS: The inferior portion was difficult and it required opening the peritoneum and peeling it down towards the common bile duct and doing so on the medial side as well. I dissected the gallbladder away from the liver on the lateral and medial side, further opening the triangle of Calot and in dissecting the thickened lymphatics down, I was able to identify the anterior surface of the cystic duct. I then was able to identify the medial and lateral contreras. I dissected additional portions of the infundibulum on the posterior side of the cystic duct away, in order to better establish the window and identify the cystic artery and isolate it. The cystic duct was clamped 3 times proximally and once near the gallbladder and divided. The cystic artery was then further isolated, clamped twice proximally and once near the gallbladder and divided. I then began to separate the gallbladder off the wall of the liver. It was somewhat difficult to establish the plane. I entered the gallbladder and dissected it to three-fourths of the wall. There were no large stones encountered. This gallbladder was then placed into an Endobag and brought out through the upper midline incision. The introducer was replaced and I was able to get to the infundibular portion of the wall that was attached to the liver. I was able to then separate that and eventually establish a plane between the posterior wall and the liver. Then, I dissected from the fundus side down along the body and right down to the lower portion. A posterior branch of the artery was encountered. This was grasped and then clipped. I then was able to divide the remaining attachments and separate the gallbladder. The gallbladder bed was inspected. There were a few areas of oozing that was easily controlled with cautery. The subdiaphragmatic and subhepatic spaces were irrigated, the irrigation removed and that was repeated until the return was clear. The gallbladder and the bed of the liver were again inspected and there was no bleeding. The previously placed clips were intact. The gas was allowed to escape and the introducers were removed. The fascia of the umbilical and upper midline introducer sites were closed with interrupted 0 Vicryl and the skin of all the incisions was closed with 4-0 Monocryl in either an interrupted or running subcuticular fashion. The skin was anesthetized with 0.5% Marcaine. The skin was cleansed, dried, benzoin placed. Steri-Strips applied. The estimated blood loss was 50 mL. Sponge, needle, and instrument counts were correct prior to closure. The patient tolerated the surgical procedure without complication and was transferred to recovery. I attest to the content of the Intraoperative Record and any orders documented therein. Any exception s are noted below.
== END 2017-03-03 12:45 | disposition home or self-care (01) ==
LOC: C.ACU 05:06
PROVIDERS: ATTEND Surgery
DX: K80.10 Calculus of gallbladder with chronic cholecystitis without obstruction (principal); I12.9 Hypertensive chronic kidney disease with stage 1 through stage 4 chronic kidney disease, or unspecified chronic kidney disease; N18.9 Chronic kidney disease, unspecified; D63.1 Anemia in chronic kidney disease; Z98.84 Bariatric surgery status